=== PATIENT | female | born 2000 | race African-American/Black ===

== ENCOUNTER 2019-08-13 | Emergency (ER) | payer SELFPAY ==
[2019-08-13 14:14] LABS: HEMATOCRIT 30.3 % (37.0-47.0); HEMOGLOBIN 8.5 g/dl (12.0-16.0); IMMATURE GRANULOCYTES 0.3 % (0.0-5.0); MEAN CELL VOLUME 73.5 fL CALC (80.0-100.0); MEAN CORPUSCULAR HGB 20.6 pG CALC (26.0-32.0); MEAN CORPUSCULAR HGB CONC 28.1 g/L CALC (32.0-36.0); NEUT# 4.94 thou/uL (2.00-7.15); RED BLOOD COUNT 4.12 mill/uL (4.20-5.60)
[2019-08-13 14:26] LABS: ANION GAP 10 (6-22 (CALC)); BUN 9 mg/dL (8-21); BUN/CREATININE RATIO 10 (12-20 (CALC)); CARBON DIOXIDE 24 mmol/l (22-30); CHLORIDE 109 mmol/l (95-108); CREATININE 0.9 mg/dL (0.5-1.0); GFR > 60 ML/MIN (>=60 (CALC)); GFR FOR AFR.AMER. > 60 ML/MIN (>=60 (CALC)); POTASSIUM 3.2 mmol/l (3.5-5.1); SODIUM 140 mmol/l (137-146)
== END 2019-08-13 17:40 | disposition home or self-care (01) | DRG 313 ==
PROVIDERS: Family Medicine
DX: R07.9 Chest pain, unspecified (principal); I42.9 Cardiomyopathy, unspecified

== ENCOUNTER 2019-08-26 | Emergency (ER) | payer SELFPAY ==
[2019-08-26 22:08] LABS: HEMATOCRIT 31.2 % (37.0-47.0); HEMOGLOBIN 8.8 g/dl (12.0-16.0); IMMATURE GRANULOCYTES 0.1 % (0.0-5.0); MEAN CELL VOLUME 73.4 fL CALC (80.0-100.0); MEAN CORPUSCULAR HGB 20.7 pG CALC (26.0-32.0); MEAN CORPUSCULAR HGB CONC 28.2 g/L CALC (32.0-36.0); NEUT# 3.55 thou/uL (2.00-7.15); RED BLOOD COUNT 4.25 mill/uL (4.20-5.60); RED CELL DISTRI WIDTH 19.5 % (11.5-15.5)
[2019-08-26 22:09] LABS: URINE BILIRUBIN - DIPSTICK NEGATIVE (NEGATIVE); URINE BLOOD DIPSTICK NEGATIVE (NEGATIVE); URINE COLOR YELLOW; URINE GLUCOSE - DIPSTICK NEGATIVE (NEGATIVE); URINE KETONE NEGATIVE (NEGATIVE); URINE LEUK ESTERASE TRACE (NEGATIVE); URINE NITRITE - DIPSTICK NEGATIVE (Negative); URINE PH 5.5 (4.5-8.0); URINE PROTEIN - DIPSTICK NEGATIVE (NEG-TRACE); URINE SPECIFIC GRAVITY >=1.030; URINE UROBILINOGEN - DIPSTICK 0.2 E.U./dL (0.2)
[2019-08-26 22:20] LABS: BARBITURATES NEGATIVE (NEGATIVE); COCAINE NEGATIVE (NEGATIVE); METHADONE NEGATIVE (NEGATIVE); OXCYCODONE NEGATIVE (NEGATIVE); TETRAHYDROCANNABIONOL POSITIVE (NEGATIVE); TRICYLIC ANTIDEPRESSANTS NEGATIVE (NEGATIVE)
[2019-08-26 22:35] LABS: ALBUMIN 4.2 g/dL (3.2-5.0); ALKALINE PHOSPHATASE 97 u/l (38-126); AMYLASE 96 u/l (30-110); ANION GAP 10 (6-22 (CALC)); BILIRUBIN, TOTAL 0.3 mg/dL (0.0-1.4); BUN 9 mg/dL (8-21); BUN/CREATININE RATIO 13 (12-20 (CALC)); CARBON DIOXIDE 24 mmol/l (22-30); CHLORIDE 109 mmol/l (95-108); CREATININE 0.6 mg/dL (0.5-1.0); GFR > 60 ML/MIN (>=60 (CALC)); GFR FOR AFR.AMER. > 60 ML/MIN (>=60 (CALC)); LIPASE 203 u/l (23-300); POTASSIUM 3.4 mmol/l (3.5-5.1); SGOT/AST 36 u/l (14-36); SODIUM 140 mmol/l (137-146); TOTAL PROTEIN 7.5 g/dL (6.3-8.2)
[2019-08-26] MEDS ORDERED: PHENERGAN25 MG/TAB PO (23:27)
== END 2019-08-26 23:45 | disposition home or self-care (01) | DRG 103 ==
PROVIDERS: Family Medicine
DX: R51 Headache (principal); R10.84 Generalized abdominal pain; I42.9 Cardiomyopathy, unspecified; Z86.73 Personal history of transient ischemic attack (TIA), and cerebral infarction without residual deficits

== ENCOUNTER 2019-09-27 | Emergency (ER) | payer SELFPAY ==
[~2019-09-27] MED LIST: PHENERGAN25 MG/TAB PO
[2019-09-27 03:02] LABS: HEMATOCRIT 30.6 % (37.0-47.0); HEMOGLOBIN 8.9 g/dl (12.0-16.0); IMMATURE GRANULOCYTES 0.3 % (0.0-5.0); MEAN CELL VOLUME 71.2 fL CALC (80.0-100.0); MEAN CORPUSCULAR HGB 20.7 pG CALC (26.0-32.0); MEAN CORPUSCULAR HGB CONC 29.1 g/dL CAL (32.0-36.0); NEUT# 4.64 thou/uL (2.00-7.15); RED BLOOD COUNT 4.3 mill/uL (4.20-5.60)
[2019-09-27 03:08] LABS: URINE BILIRUBIN - DIPSTICK NEGATIVE (NEGATIVE); URINE BLOOD DIPSTICK NEGATIVE (NEGATIVE); URINE COLOR YELLOW; URINE GLUCOSE - DIPSTICK NEGATIVE (NEGATIVE); URINE KETONE TRACE mg/dL (NEGATIVE); URINE LEUK ESTERASE NEGATIVE (NEGATIVE); URINE NITRITE - DIPSTICK NEGATIVE (Negative); URINE PROTEIN - DIPSTICK NEGATIVE (NEG-TRACE); URINE SPECIFIC GRAVITY >=1.030; URINE UROBILINOGEN - DIPSTICK 0.2 E.U./dL (0.2)
[2019-09-27 03:09] LABS: ALBUMIN 3.8 g/dL (3.2-5.0); ALKALINE PHOSPHATASE 72 u/l (38-126); ANION GAP 11 (6-22 (CALC)); BILIRUBIN, TOTAL 0.3 mg/dL (0.0-1.4); BUN 6 mg/dL (8-21); BUN/CREATININE RATIO 9 (12-20 (CALC)); CARBON DIOXIDE 21 mmol/l (22-30); CHLORIDE 109 mmol/l (95-108); CREATININE 0.6 mg/dL (0.5-1.0); GFR > 60 ML/MIN (>=60 (CALC)); GFR FOR AFR.AMER. > 60 ML/MIN (>=60 (CALC)); LIPASE 165 u/l (23-300); POTASSIUM 3.6 mmol/l (3.5-5.1); SGOT/AST 29 u/l (14-36); SODIUM 137 mmol/l (137-146); TOTAL PROTEIN 6.8 g/dL (6.3-8.2)
[2019-09-27 03:51] LABS: BETA-HCG, QUANT(RESULT NUMBER) 56504 mIU/mL
== END 2019-09-27 07:00 | disposition home or self-care (01) | DRG 833 ==
DX: O26.891 Other specified pregnancy related conditions, first trimester (principal); R10.30 Lower abdominal pain, unspecified; O41.8X10 Other specified disorders of amniotic fluid and membranes, first trimester, not applicable or unspecified; Z3A.01 Less than 8 weeks gestation of pregnancy

== ENCOUNTER 2019-10-20 | Emergency (ER) | payer SELFPAY ==
[2019-10-20] MEDS ORDERED: MIRALAX3350 N1 PO (20:21)
[2019-10-20] MEDS ORDERED: PRENATAL MULTI1 CAP PO (20:21)
== END 2019-10-20 20:45 | disposition home or self-care (01) | DRG 832 ==
DX: O99.611 Diseases of the digestive system complicating pregnancy, first trimester (principal); K59.00 Constipation, unspecified; O99.411 Diseases of the circulatory system complicating pregnancy, first trimester; I42.9 Cardiomyopathy, unspecified; Z3A.00 Weeks of gestation of pregnancy not specified; Z86.73 Personal history of transient ischemic attack (TIA), and cerebral infarction without residual deficits

== ENCOUNTER 2019-11-08 | Emergency (ER) | payer SELFPAY ==
[~2019-11-08] MED LIST changes: +MIRALAX3350 N1 PO; +PRENATAL MULTI1 CAP PO
[2019-11-08] MEDS ORDERED: PRENATA9 PO (14:59)
[2019-11-08 15:18] LABS: HEMATOCRIT 30.5 % (37.0-47.0); IMMATURE GRANULOCYTES 0.3 % (0.0-5.0); MEAN CELL VOLUME 70.6 fL CALC (80.0-100.0); MEAN CORPUSCULAR HGB 20.8 pG CALC (26.0-32.0); MEAN CORPUSCULAR HGB CONC 29.5 g/dL CAL (32.0-36.0); NEUT# 6.05 thou/uL (2.00-7.15); RED BLOOD COUNT 4.32 mill/uL (4.20-5.60)
[2019-11-08 15:20] LABS: URINE BILIRUBIN - DIPSTICK NEGATIVE (NEGATIVE); URINE BLOOD DIPSTICK NEGATIVE (NEGATIVE); URINE COLOR YELLOW; URINE GLUCOSE - DIPSTICK NEGATIVE (NEGATIVE); URINE KETONE NEGATIVE (NEGATIVE); URINE LEUK ESTERASE NEGATIVE (NEGATIVE); URINE NITRITE - DIPSTICK NEGATIVE (Negative); URINE PROTEIN - DIPSTICK NEGATIVE (NEG-TRACE); URINE UROBILINOGEN - DIPSTICK 0.2 E.U./dL (0.2)
[2019-11-08 15:42] LABS: ALKALINE PHOSPHATASE 81 u/l (38-126); ANION GAP 10 (6-22 (CALC)); BILIRUBIN, TOTAL 0.3 mg/dL (0.0-1.4); BUN 4 mg/dL (8-21); BUN/CREATININE RATIO 8 (12-20 (CALC)); CARBON DIOXIDE 23 mmol/l (22-30); CHLORIDE 106 mmol/l (95-108); CREATININE 0.5 mg/dL (0.5-1.0); GFR > 60 ML/MIN (>=60 (CALC)); GFR FOR AFR.AMER. > 60 ML/MIN (>=60 (CALC)); LIPASE 142 u/l (23-300); POTASSIUM 3.9 mmol/l (3.5-5.1); SGOT/AST 28 u/l (14-36); SODIUM 135 mmol/l (137-146); TOTAL PROTEIN 7.2 g/dL (6.3-8.2)
[2019-11-08 16:33] LABS: BETA-HCG, QUANT(RESULT NUMBER) 163550 mIU/mL
[2019-11-08] MEDS ORDERED: PREDNISONE50 MG PO ×2 (18:53)
== END 2019-11-08 18:55 | disposition home or self-care (01) | DRG 832 ==
PROVIDERS: Family Medicine
DX: O99.511 Diseases of the respiratory system complicating pregnancy, first trimester (principal); J45.901 Unspecified asthma with (acute) exacerbation; O99.411 Diseases of the circulatory system complicating pregnancy, first trimester; I42.9 Cardiomyopathy, unspecified; O26.891 Other specified pregnancy related conditions, first trimester; R10.31 Right lower quadrant pain; R10.32 Left lower quadrant pain; Z3A.08 8 weeks gestation of pregnancy; Z86.73 Personal history of transient ischemic attack (TIA), and cerebral infarction without residual deficits; Z20.828 Contact with and (suspected) exposure to other viral communicable diseases

== ENCOUNTER 2019-12-18 18:07 | Emergency (ER) | payer OTHER ==
[~2019-12-18] VITALS: Ht 167.6 cm; Wt 72.7 kg
[~2019-12-18 18:07] MED LIST changes: +PREDNISONE50 MG PO; +PRENATA9 PO
[2019-12-18 18:37] LABS: HEMATOCRIT 29.7 % (37.0-47.0); HEMOGLOBIN 8.9 g/dl (12.0-16.0); IMMATURE GRANULOCYTES 0.7 % (0.0-5.0); MEAN CELL VOLUME 70.4 fL CALC (80.0-100.0); MEAN CORPUSCULAR HGB 21.1 pG CALC (26.0-32.0); NEUT# 10.21 thou/uL (2.00-7.15); RED BLOOD COUNT 4.22 mill/uL (4.20-5.60); RED CELL DISTRI WIDTH 19.4 % (11.5-15.5)
[2019-12-18 18:51] LABS: ALBUMIN 3.3 g/dL (3.2-5.0); ALKALINE PHOSPHATASE 85 u/l (38-126); ANION GAP 10 (6-22 (CALC)); BILIRUBIN, TOTAL 0.4 mg/dL (0.0-1.4); BUN 6 mg/dL (8-21); BUN/CREATININE RATIO 11 (12-20 (CALC)); CARBON DIOXIDE 20 mmol/l (22-30); CHLORIDE 106 mmol/l (95-108); CREATININE 0.6 mg/dL (0.5-1.0); GFR > 60 ML/MIN (>=60 (CALC)); GFR FOR AFR.AMER. > 60 ML/MIN (>=60 (CALC)); LIPASE 106 u/l (23-300); POTASSIUM 3.6 mmol/l (3.5-5.1); SGOT/AST 29 u/l (14-36); SODIUM 132 mmol/l (137-146); TOTAL PROTEIN 6.5 g/dL (6.3-8.2)
[2019-12-18 19:00] LABS: URINE BLOOD DIPSTICK NEGATIVE (NEGATIVE); URINE COLOR YELLOW; URINE GLUCOSE - DIPSTICK NEGATIVE (NEGATIVE); URINE KETONE TRACE mg/dL (NEGATIVE); URINE LEUK ESTERASE NEGATIVE (NEGATIVE); URINE NITRITE - DIPSTICK NEGATIVE (Negative); URINE PH 6.5 (4.5-8.0); URINE PROTEIN - DIPSTICK TRACE mg/dL (NEG-TRACE); URINE SPECIFIC GRAVITY 1.025; URINE UROBILINOGEN - DIPSTICK 0.2 E.U./dL (0.2)
[2019-12-18 19:01] LABS: URINE BILIRUBIN - DIPSTICK NEGATIVE (NEGATIVE)
[2019-12-18 19:34] LABS: BETA-HCG, QUANT(RESULT NUMBER) 48802 mIU/mL
[2019-12-18] MEDS ORDERED: IRON325 M1 PO ×2 (20:56)
[2019-12-18 21:27] VITALS: BP 126/58
== END 2019-12-18 21:27 | disposition home or self-care (01) ==
LOC: ED 18:07
PROVIDERS: Family Medicine
DX: O26.892 Other specified pregnancy related conditions, second trimester (principal); R10.30 Lower abdominal pain, unspecified; O99.012 Anemia complicating pregnancy, second trimester; D64.9 Anemia, unspecified; Z3A.00 Weeks of gestation of pregnancy not specified; Z86.73 Personal history of transient ischemic attack (TIA), and cerebral infarction without residual deficits

== ENCOUNTER 2020-01-03 09:03 | Emergency (ER) | payer OTHER ==
[~2020-01-03] VITALS: Ht 167.6 cm; Wt 71.3 kg
[~2020-01-03 09:03] MED LIST changes: +IRON325 M1 PO
[2020-01-03] MEDS ORDERED: PREDNISONE50 MG PO ×2 (11:05)
[2020-01-03] MEDS ORDERED: PROAIR HFA108 MCG/AC PO ×2 (11:05)
[2020-01-03 11:20] VITALS: BP 112/60
== END 2020-01-03 11:20 | disposition home or self-care (01) ==
LOC: ED 09:03
DX: O99.512 Diseases of the respiratory system complicating pregnancy, second trimester (principal); J06.9 Acute upper respiratory infection, unspecified; J45.909 Unspecified asthma, uncomplicated; O99.412 Diseases of the circulatory system complicating pregnancy, second trimester; I42.9 Cardiomyopathy, unspecified; Z3A.24 24 weeks gestation of pregnancy; Z86.73 Personal history of transient ischemic attack (TIA), and cerebral infarction without residual deficits; Z20.828 Contact with and (suspected) exposure to other viral communicable diseases

== ENCOUNTER 2020-02-03 14:25 | Emergency (ER) | payer OTHER ==
[~2020-02-03] VITALS: Ht 167.6 cm; Wt 76.0 kg
[~2020-02-03 14:25] MED LIST changes: +PROAIR HFA108 MCG/AC PO
[2020-02-03 15:02] LABS: HEMATOCRIT 30.2 % (37.0-47.0); HEMOGLOBIN 8.7 g/dl (12.0-16.0); IMMATURE GRANULOCYTES 0.4 % (0.0-5.0); MEAN CELL VOLUME 74.2 fL CALC (80.0-100.0); MEAN CORPUSCULAR HGB 21.4 pG CALC (26.0-32.0); MEAN CORPUSCULAR HGB CONC 28.8 g/dL CAL (32.0-36.0); RED BLOOD COUNT 4.07 mill/uL (4.20-5.60)
[2020-02-03 15:10] LABS: URINE BILIRUBIN - DIPSTICK NEGATIVE (NEGATIVE); URINE BLOOD DIPSTICK NEGATIVE (NEGATIVE); URINE COLOR YELLOW; URINE GLUCOSE - DIPSTICK NEGATIVE (NEGATIVE); URINE KETONE TRACE mg/dL (NEGATIVE); URINE NITRITE - DIPSTICK NEGATIVE (Negative); URINE PH 6.5 (4.5-8.0); URINE PROTEIN - DIPSTICK 30 mg/dL (NEG-TRACE); URINE SPECIFIC GRAVITY >=1.030
[2020-02-03 15:12] LABS: URINE EPITHELIAL CELLS MANY EPI/hpf (0-FEW); URINE LEUK ESTERASE TRACE (NEGATIVE); URINE MUCUS FEW hpf (NONE-FEW)
[2020-02-03 15:18] LABS: ALBUMIN 3.1 g/dL (3.2-5.0); ALKALINE PHOSPHATASE 111 u/l (38-126); ANION GAP 8 (6-22 (CALC)); BUN 4 mg/dL (7-17); BUN/CREATININE RATIO 9 (12-20 (CALC)); CARBON DIOXIDE 21 mmol/l (22-30); CHLORIDE 110 mmol/l (95-108); CREATININE 0.5 mg/dL (0.5-1.0); GFR > 60 ML/MIN (>=60 (CALC)); GFR FOR AFR.AMER. > 60 ML/MIN (>=60 (CALC)); LIPASE 162 u/l (23-300); POTASSIUM 3.1 mmol/l (3.5-5.1); SGOT/AST 26 u/l (14-36); SODIUM 136 mmol/l (137-146); TOTAL PROTEIN 6.3 g/dL (6.3-8.2)
[2020-02-03 15:21] LABS: BILIRUBIN, TOTAL 0.2 mg/dL (0.0-1.4)
[2020-02-03 17:38] VITALS: BP 118/65
== END 2020-02-03 17:00 | disposition home or self-care (01) ==
LOC: ED 14:25
DX: O26.892 Other specified pregnancy related conditions, second trimester (principal); R10.11 Right upper quadrant pain; O99.282 Endocrine, nutritional and metabolic diseases complicating pregnancy, second trimester; E87.6 Hypokalemia; O99.012 Anemia complicating pregnancy, second trimester; D64.9 Anemia, unspecified; O99.412 Diseases of the circulatory system complicating pregnancy, second trimester; I42.9 Cardiomyopathy, unspecified; O99.512 Diseases of the respiratory system complicating pregnancy, second trimester; J45.909 Unspecified asthma, uncomplicated; Z3A.24 24 weeks gestation of pregnancy; Z86.73 Personal history of transient ischemic attack (TIA), and cerebral infarction without residual deficits

== ENCOUNTER 2020-03-17 12:54 | Emergency (ER) | payer OTHER ==
[~2020-03-17] VITALS: Ht 167.6 cm; Wt 70.0 kg
[2020-03-17 13:35] LABS: URINE BILIRUBIN - DIPSTICK NEGATIVE (NEGATIVE); URINE BLOOD DIPSTICK NEGATIVE (NEGATIVE); URINE COLOR YELLOW; URINE GLUCOSE - DIPSTICK NEGATIVE (NEGATIVE); URINE KETONE NEGATIVE (NEGATIVE); URINE LEUK ESTERASE TRACE (NEGATIVE); URINE NITRITE - DIPSTICK NEGATIVE (Negative); URINE PROTEIN - DIPSTICK NEGATIVE (NEG-TRACE); URINE UROBILINOGEN - DIPSTICK 0.2 E.U./dL (0.2)
[2020-03-17 13:46] LABS: HEMATOCRIT 31.8 % (37.0-47.0); HEMOGLOBIN 9.2 g/dl (12.0-16.0); IMMATURE GRANULOCYTES 0.7 % (0.0-5.0); MEAN CELL VOLUME 71.6 fL CALC (80.0-100.0); MEAN CORPUSCULAR HGB 20.7 pG CALC (26.0-32.0); MEAN CORPUSCULAR HGB CONC 28.9 g/dL CAL (32.0-36.0); NEUT# 7.93 thou/uL (2.00-7.15); RED BLOOD COUNT 4.44 mill/uL (4.20-5.60); RED CELL DISTRI WIDTH 18.3 % (11.5-15.5)
[2020-03-17 14:03] LABS: ALBUMIN 3.3 g/dL (3.2-5.0); BUN 5 mg/dL (7-17); BUN/CREATININE RATIO 9 (12-20 (CALC)); CARBON DIOXIDE 22 mmol/l (22-30); CHLORIDE 105 mmol/l (95-108); CREATININE 0.5 mg/dL (0.5-1.0); GFR > 60 ML/MIN (>=60 (CALC)); GFR FOR AFR.AMER. > 60 ML/MIN (>=60 (CALC)); SGOT/AST 29 u/l (14-36); SODIUM 133 mmol/l (137-146); TOTAL PROTEIN 6.8 g/dL (6.3-8.2)
[2020-03-17 14:10] LABS: ALKALINE PHOSPHATASE 168 u/l (38-126); ANION GAP 10 (6-22 (CALC)); BILIRUBIN, TOTAL 0.4 mg/dL (0.0-1.4); POTASSIUM 3.8 mmol/l (3.5-5.1)
[2020-03-17] MEDS ORDERED: MONISTAT1 VA (14:13)
[2020-03-17 14:15] VITALS: BP 103/58
== END 2020-03-17 14:15 | disposition home or self-care (01) ==
LOC: ED 12:54
PROVIDERS: Emergency Medicine
DX: O23.592 Infection of other part of genital tract in pregnancy, second trimester (principal); O26.892 Other specified pregnancy related conditions, second trimester; M79.89 Other specified soft tissue disorders; R25.2 Cramp and spasm; O99.412 Diseases of the circulatory system complicating pregnancy, second trimester; I42.9 Cardiomyopathy, unspecified; O99.512 Diseases of the respiratory system complicating pregnancy, second trimester; J45.909 Unspecified asthma, uncomplicated; Z3A.28 28 weeks gestation of pregnancy; Z86.73 Personal history of transient ischemic attack (TIA), and cerebral infarction without residual deficits

== ENCOUNTER 2020-12-12 16:39 | Emergency (ER) | payer OTHER ==
[~2020-12-12] VITALS: Ht 167.6 cm; Wt 63.4 kg
[~2020-12-12 16:39] MED LIST changes: +MONISTAT1 VA
[2020-12-12 17:18] LABS: HEMATOCRIT 31.9 % (37.0-47.0); HEMOGLOBIN 8.9 g/dl (12.0-16.0); IMMATURE GRANULOCYTES 0.4 % (0.0-5.0); MEAN CELL VOLUME 71.4 fL CALC (80.0-100.0); MEAN CORPUSCULAR HGB 19.9 pG CALC (26.0-32.0); MEAN CORPUSCULAR HGB CONC 27.9 g/dL CAL (32.0-36.0); NEUT# 2.04 thou/uL (2.00-7.15); RED BLOOD COUNT 4.47 mill/uL (4.20-5.60); RED CELL DISTRI WIDTH 17.9 % (11.5-15.5)
[2020-12-12 17:18] LABS: URINE BLOOD DIPSTICK NEGATIVE (NEGATIVE); URINE COLOR YELLOW; URINE GLUCOSE - DIPSTICK NEGATIVE (NEGATIVE); URINE KETONE TRACE mg/dL (NEGATIVE); URINE LEUK ESTERASE NEGATIVE (NEGATIVE); URINE PROTEIN - DIPSTICK TRACE mg/dL (NEG-TRACE); URINE SPECIFIC GRAVITY >=1.030; URINE UROBILINOGEN - DIPSTICK 0.2 E.U./dL (0.2)
[2020-12-12 17:20] LABS: URINE BILIRUBIN - DIPSTICK SMALL (NEGATIVE); URINE NITRITE - DIPSTICK NEGATIVE (Negative)
[2020-12-12 17:30] LABS: ALBUMIN 3.8 g/dL (3.2-5.0); ALKALINE PHOSPHATASE 93 u/l (38-126); ANION GAP 10 (6-22 (CALC)); BILIRUBIN, TOTAL 0.3 mg/dL (0.0-1.4); BUN 8 mg/dL (7-17); BUN/CREATININE RATIO 11 (12-20 (CALC)); CARBON DIOXIDE 23 mmol/l (22-30); CHLORIDE 109 mmol/l (95-108); CREATININE 0.7 mg/dL (0.5-1.0); GFR > 60 ML/MIN (>=60 (CALC)); GFR FOR AFR.AMER. > 60 ML/MIN (>=60 (CALC)); LIPASE 575 u/l (23-300); POTASSIUM 3.7 mmol/l (3.5-5.1); SGOT/AST 39 u/l (14-36); SODIUM 138 mmol/l (137-146); TOTAL PROTEIN 7.6 g/dL (6.3-8.2)
[2020-12-12] MEDS ORDERED: IRON FORMULA PO (19:14)
[2020-12-12 19:25] VITALS: BP 141/62
== END 2020-12-12 19:26 | disposition home or self-care (01) ==
LOC: ED 16:39
DX: K59.00 Constipation, unspecified (principal); D64.9 Anemia, unspecified; J45.909 Unspecified asthma, uncomplicated; I42.9 Cardiomyopathy, unspecified; Z86.73 Personal history of transient ischemic attack (TIA), and cerebral infarction without residual deficits
CPT/HCPCS: Q9967

== ENCOUNTER 2020-12-30 07:07 | Emergency (ER) | payer OTHER ==
[~2020-12-30] VITALS: Ht 167.6 cm; Wt 63.0 kg
[~2020-12-30 07:07] MED LIST changes: +IRON FORMULA PO
[2020-12-30 07:53] LABS: URINE BILIRUBIN - DIPSTICK NEGATIVE (NEGATIVE); URINE BLOOD DIPSTICK NEGATIVE (NEGATIVE); URINE COLOR YELLOW; URINE GLUCOSE - DIPSTICK NEGATIVE (NEGATIVE); URINE KETONE TRACE mg/dL (NEGATIVE); URINE LEUK ESTERASE NEGATIVE (NEGATIVE); URINE PH 5.5 (4.5-8.0); URINE PROTEIN - DIPSTICK NEGATIVE (NEG-TRACE); URINE SPECIFIC GRAVITY >=1.030; URINE UROBILINOGEN - DIPSTICK 0.2 E.U./dL (0.2)
[2020-12-30 08:00] LABS: URINE NITRITE - DIPSTICK NEGATIVE (Negative)
[2020-12-30 08:21] LABS: HEMATOCRIT 34.5 % (37.0-47.0); HEMOGLOBIN 9.6 g/dl (12.0-16.0); IMMATURE GRANULOCYTES 0.2 % (0.0-5.0); MEAN CELL VOLUME 71.3 fL CALC (80.0-100.0); MEAN CORPUSCULAR HGB 19.8 pG CALC (26.0-32.0); MEAN CORPUSCULAR HGB CONC 27.8 g/dL CAL (32.0-36.0); NEUT# 2.35 thou/uL (2.00-7.15); RED BLOOD COUNT 4.84 mill/uL (4.20-5.60); RED CELL DISTRI WIDTH 17.3 % (11.5-15.5)
[2020-12-30 08:23] LABS: ALBUMIN 3.8 g/dL (3.2-5.0); ALKALINE PHOSPHATASE 89 u/l (38-126); ANION GAP 12 (6-22 (CALC)); BILIRUBIN, TOTAL 0.3 mg/dL (0.0-1.4); BUN 9 mg/dL (7-17); BUN/CREATININE RATIO 14 (12-20 (CALC)); CARBON DIOXIDE 22 mmol/l (22-30); CHLORIDE 108 mmol/l (95-108); CREATININE 0.7 mg/dL (0.5-1.0); GFR > 60 ML/MIN (>=60 (CALC)); GFR FOR AFR.AMER. > 60 ML/MIN (>=60 (CALC)); LIPASE 300 u/l (23-300); POTASSIUM 4.2 mmol/l (3.5-5.1); SGOT/AST 39 u/l (14-36); SODIUM 138 mmol/l (137-146); TOTAL PROTEIN 7.8 g/dL (6.3-8.2)
[2020-12-30 09:07] VITALS: BP 100/59
== END 2020-12-30 09:15 | disposition home or self-care (01) ==
LOC: ED 07:07
PROVIDERS: Family Medicine
DX: L90.5 Scar conditions and fibrosis of skin (principal); G62.9 Polyneuropathy, unspecified; N91.2 Amenorrhea, unspecified; I42.9 Cardiomyopathy, unspecified; J45.909 Unspecified asthma, uncomplicated; Z86.73 Personal history of transient ischemic attack (TIA), and cerebral infarction without residual deficits

== ENCOUNTER 2021-02-23 11:36 | Emergency (ER) | payer OTHER ==
[~2021-02-23] VITALS: Ht 167.6 cm; Wt 67.0 kg
[2021-02-23 16:37] VITALS: BP 130/78
== END 2021-02-23 16:40 | disposition home or self-care (01) ==
LOC: ED 11:36
DX: S93.401A Sprain of unspecified ligament of right ankle, initial encounter (principal); J45.909 Unspecified asthma, uncomplicated; I42.9 Cardiomyopathy, unspecified; X50.0XXA Overexertion from strenuous movement or load, initial encounter; Y92.410 Unspecified street and highway as the place of occurrence of the external cause; Z86.73 Personal history of transient ischemic attack (TIA), and cerebral infarction without residual deficits

== ENCOUNTER 2021-03-03 07:46 | Emergency (ER) | payer OTHER ==
[~2021-03-03] VITALS: Ht 167.6 cm; Wt 65.0 kg
[2021-03-03] MEDS ORDERED: POLYSPORIN3.5 GM TOP (10:38)
[2021-03-03 11:00] VITALS: BP 96/72
[2021-03-04] MEDS ORDERED: EMLA CREAM5 GM/TUBE EX (08:13)
[2021-03-04] MEDS ORDERED: [UNRECOGNIZED DRUG - REMARK] XX (08:15)
== END 2021-03-03 11:00 | disposition home or self-care (01) ==
LOC: ED 07:46
DX: N91.2 Amenorrhea, unspecified (principal); T21.22XA Burn of second degree of abdominal wall, initial encounter; I42.9 Cardiomyopathy, unspecified; J45.909 Unspecified asthma, uncomplicated; X12.XXXA Contact with other hot fluids, initial encounter; Y93.G3 Activity, cooking and baking; Y92.9 Unspecified place or not applicable; Z86.73 Personal history of transient ischemic attack (TIA), and cerebral infarction without residual deficits

== ENCOUNTER 2021-03-04 07:53 | Emergency (ER) | payer OTHER ==
[~2021-03-04] VITALS: Ht 167.6 cm; Wt 68.6 kg
[~2021-03-04 07:53] MED LIST changes: +POLYSPORIN3.5 GM TOP
[2021-03-04] MEDS ORDERED: EMLA CREAM5 GM/TUBE EX (08:13)
[2021-03-04] MEDS ORDERED: [UNRECOGNIZED DRUG - REMARK] XX (08:15)
[2021-03-04 09:15] VITALS: BP 104/63
== END 2021-03-04 09:15 | disposition home or self-care (01) ==
LOC: ED 07:53
DX: T21.02XD Burn of unspecified degree of abdominal wall, subsequent encounter (principal); I42.9 Cardiomyopathy, unspecified; J45.909 Unspecified asthma, uncomplicated; F17.200 Nicotine dependence, unspecified, uncomplicated; X12.XXXD Contact with other hot fluids, subsequent encounter; Z86.73 Personal history of transient ischemic attack (TIA), and cerebral infarction without residual deficits

== ENCOUNTER 2021-03-12 01:25 | Emergency (ER) | payer OTHER ==
[~2021-03-12] VITALS: Ht 157.5 cm; Wt 62.0 kg
[~2021-03-12 01:25] MED LIST changes: +EMLA CREAM5 GM/TUBE EX; +[UNRECOGNIZED DRUG - REMARK] XX
[2021-03-12 02:12] LABS: URINE BILIRUBIN - DIPSTICK NEGATIVE (NEGATIVE); URINE BLOOD DIPSTICK NEGATIVE (NEGATIVE); URINE COLOR YELLOW; URINE GLUCOSE - DIPSTICK NEGATIVE (NEGATIVE); URINE KETONE TRACE mg/dL (NEGATIVE); URINE LEUK ESTERASE NEGATIVE (NEGATIVE); URINE PROTEIN - DIPSTICK TRACE mg/dL (NEG-TRACE); URINE SPECIFIC GRAVITY >=1.030; URINE UROBILINOGEN - DIPSTICK 0.2 E.U./dL (0.2)
[2021-03-12 02:13] LABS: URINE NITRITE - DIPSTICK NEGATIVE (Negative)
[2021-03-12] MEDS ORDERED: TORADOL PO (02:58)
[2021-03-12 05:29] VITALS: BP 111/60
== END 2021-03-12 05:26 | disposition home or self-care (01) ==
LOC: ED 01:25
DX: M54.6 Pain in thoracic spine (principal); J45.909 Unspecified asthma, uncomplicated; I42.9 Cardiomyopathy, unspecified; Z86.73 Personal history of transient ischemic attack (TIA), and cerebral infarction without residual deficits

== ENCOUNTER 2021-03-22 21:35 | Emergency (ER) | payer OTHER ==
[~2021-03-22] VITALS: Ht 157.5 cm; Wt 61.8 kg
[~2021-03-22 21:35] MED LIST changes: +TORADOL PO
[2021-03-22 22:12] LABS: HEMATOCRIT 34.4 % (37.0-47.0); HEMOGLOBIN 9.9 g/dl (12.0-16.0); MEAN CELL VOLUME 74.8 fL CALC (80.0-100.0); MEAN CORPUSCULAR HGB 21.5 pG CALC (26.0-32.0); MEAN CORPUSCULAR HGB CONC 28.8 g/dL CAL (32.0-36.0); NEUT# 2.27 thou/uL (2.00-7.15); RED BLOOD COUNT 4.6 mill/uL (4.20-5.60); RED CELL DISTRI WIDTH 19.8 % (11.5-15.5)
[2021-03-22 22:12] LABS: URINE BILIRUBIN - DIPSTICK NEGATIVE (NEGATIVE); URINE BLOOD DIPSTICK NEGATIVE (NEGATIVE); URINE COLOR YELLOW; URINE GLUCOSE - DIPSTICK NEGATIVE (NEGATIVE); URINE KETONE TRACE mg/dL (NEGATIVE); URINE LEUK ESTERASE NEGATIVE (NEGATIVE); URINE NITRITE - DIPSTICK NEGATIVE (Negative); URINE PROTEIN - DIPSTICK NEGATIVE (NEG-TRACE); URINE SPECIFIC GRAVITY >=1.030; URINE UROBILINOGEN - DIPSTICK 0.2 E.U./dL (0.2)
[2021-03-22 22:29] LABS: ALBUMIN 3.7 g/dL (3.2-5.0); ALKALINE PHOSPHATASE 114 u/l (38-126); AMYLASE 126 u/l (30-110); ANION GAP 7 (6-22 (CALC)); BILIRUBIN, TOTAL 0.3 mg/dL (0.0-1.4); BUN 10 mg/dL (7-17); BUN/CREATININE RATIO 12 (12-20 (CALC)); CARBON DIOXIDE 24 mmol/l (22-30); CHLORIDE 110 mmol/l (95-108); CREATININE 0.9 mg/dL (0.5-1.0); GFR > 60 ML/MIN (>=60 (CALC)); GFR FOR AFR.AMER. > 60 ML/MIN (>=60 (CALC)); LIPASE 465 u/l (23-300); POTASSIUM 4.1 mmol/l (3.5-5.1); SGOT/AST 31 u/l (14-36); SODIUM 137 mmol/l (137-146); TOTAL PROTEIN 7.3 g/dL (6.3-8.2)
[2021-03-23 00:56] VITALS: BP 103/69
== END 2021-03-23 00:56 | disposition home or self-care (01) ==
LOC: ED 21:35
PROVIDERS: Family Medicine
DX: K59.00 Constipation, unspecified (principal); R74.8 Abnormal levels of other serum enzymes; I42.9 Cardiomyopathy, unspecified; J45.909 Unspecified asthma, uncomplicated; Z86.73 Personal history of transient ischemic attack (TIA), and cerebral infarction without residual deficits; Z20.822 Contact with and (suspected) exposure to COVID-19
CPT/HCPCS: Q9967

== ENCOUNTER 2021-05-07 13:09 | Emergency (ER) | payer OTHER ==
[~2021-05-07] VITALS: Ht 157.5 cm; Wt 65.0 kg
[2021-05-07] MEDS ORDERED: PREDNISONE20 MG PO (16:17)
[2021-05-07] MEDS ORDERED: ZPAK PO (16:17)
[2021-05-07] MEDS ORDERED: PROAIR HFA108 MCG/AC INHW/SPAC (16:17)
[2021-05-07 16:32] VITALS: BP 101/70
== END 2021-05-07 16:33 | disposition home or self-care (01) ==
LOC: ED 13:09
DX: J06.9 Acute upper respiratory infection, unspecified (principal); J45.901 Unspecified asthma with (acute) exacerbation; I42.9 Cardiomyopathy, unspecified; F17.200 Nicotine dependence, unspecified, uncomplicated; Z86.73 Personal history of transient ischemic attack (TIA), and cerebral infarction without residual deficits; Z20.822 Contact with and (suspected) exposure to COVID-19

== ENCOUNTER 2021-06-01 18:47 | Emergency (ER) | payer OTHER ==
[~2021-06-01] VITALS: Ht 170.2 cm; Wt 67.0 kg
[~2021-06-01 18:47] MED LIST changes: +PREDNISONE20 MG PO; +PROAIR HFA108 MCG/AC INHW/SPAC; +ZPAK PO
[2021-06-01] MEDS ORDERED: VOLTAREN75 MG PO (20:39)
[2021-06-01 20:50] VITALS: BP 107/50
== END 2021-06-01 20:50 | disposition home or self-care (01) ==
LOC: ED 18:47
DX: M77.52 Other enthesopathy of left foot and ankle (principal); I42.9 Cardiomyopathy, unspecified; J45.909 Unspecified asthma, uncomplicated; F17.200 Nicotine dependence, unspecified, uncomplicated; Z86.73 Personal history of transient ischemic attack (TIA), and cerebral infarction without residual deficits

== ENCOUNTER 2021-08-29 13:04 | Emergency (ER) | payer OTHER ==
[~2021-08-29] VITALS: Ht 165.1 cm; Wt 61.0 kg
[2021-08-29] VITALS (10 sets, daily range): BP systolic 96–140; BP diastolic 53–97
[~2021-08-29 13:04] MED LIST changes: +VOLTAREN75 MG PO
[2021-08-29] MEDS ORDERED: KEFLEX500 MG PO (15:25)
== END 2021-08-29 15:40 | disposition home or self-care (01) ==
LOC: ED 13:04
DX: O9A.211 Injury, poisoning and certain other consequences of external causes complicating pregnancy, first trimester (principal); S71.151A Open bite, right thigh, initial encounter; S71.152A Open bite, left thigh, initial encounter; S81.851A Open bite, right lower leg, initial encounter; O99.511 Diseases of the respiratory system complicating pregnancy, first trimester; J45.909 Unspecified asthma, uncomplicated; O99.411 Diseases of the circulatory system complicating pregnancy, first trimester; I42.9 Cardiomyopathy, unspecified; O99.331 Smoking (tobacco) complicating pregnancy, first trimester; F17.200 Nicotine dependence, unspecified, uncomplicated; W54.0XXA Bitten by dog, initial encounter; Y92.89 Other specified places as the place of occurrence of the external cause; Z3A.08 8 weeks gestation of pregnancy

== ENCOUNTER 2021-10-22 18:31 | Emergency (ER) | payer OTHER ==
[~2021-10-22] VITALS: Ht 165.1 cm; Wt 87.0 kg
[~2021-10-22 18:31] MED LIST changes: +KEFLEX500 MG PO
[2021-10-22 19:53] LABS: HEMATOCRIT 33.2 % (37.0-47.0); HEMOGLOBIN 9.9 g/dl (12.0-16.0); IMMATURE GRANULOCYTES 0.1 % (0.0-5.0); MEAN CELL VOLUME 76.7 fL CALC (80.0-100.0); MEAN CORPUSCULAR HGB 22.9 pG CALC (26.0-32.0); MEAN CORPUSCULAR HGB CONC 29.8 g/dL CAL (32.0-36.0); NEUT# 5.12 thou/uL (2.00-7.15); RED BLOOD COUNT 4.33 mill/uL (4.20-5.60); RED CELL DISTRI WIDTH 19.7 % (11.5-15.5)
[2021-10-22 19:56] LABS: URINE BILIRUBIN - DIPSTICK NEGATIVE (NEGATIVE); URINE BLOOD DIPSTICK NEGATIVE (NEGATIVE); URINE COLOR YELLOW; URINE GLUCOSE - DIPSTICK NEGATIVE (NEGATIVE); URINE KETONE TRACE mg/dL (NEGATIVE); URINE LEUK ESTERASE NEGATIVE (NEGATIVE); URINE PH 6.5 (4.5-8.0); URINE PROTEIN - DIPSTICK TRACE mg/dL (NEG-TRACE); URINE SPECIFIC GRAVITY >=1.030; URINE UROBILINOGEN - DIPSTICK 0.2 E.U./dL (0.2)
[2021-10-22 19:57] LABS: URINE NITRITE - DIPSTICK NEGATIVE (Negative)
[2021-10-22 20:30] LABS: ALBUMIN 3.6 g/dL (3.2-5.0); ALKALINE PHOSPHATASE 96 u/l (38-126); AMYLASE 112 u/l (30-110); ANION GAP 11 (6-22 (CALC)); BILIRUBIN, TOTAL 0.2 mg/dL (0.0-1.4); BUN 8 mg/dL (7-17); BUN/CREATININE RATIO 13 (12-20 (CALC)); CARBON DIOXIDE 25 mmol/l (22-30); CHLORIDE 106 mmol/l (95-108); CREATININE 0.6 mg/dL (0.5-1.0); GFR > 60 ML/MIN (>=60 (CALC)); GFR FOR AFR.AMER. > 60 ML/MIN (>=60 (CALC)); LIPASE 256 u/l (23-300); POTASSIUM 3.7 mmol/l (3.5-5.1); SGOT/AST 36 u/l (14-36); SODIUM 138 mmol/l (137-146); TOTAL PROTEIN 7.3 g/dL (6.3-8.2)
[2021-10-22 20:51] VITALS: BP 102/57
== END 2021-10-22 20:58 | disposition home or self-care (01) ==
LOC: ED 18:31
PROVIDERS: Emergency Medicine
DX: O26.892 Other specified pregnancy related conditions, second trimester (principal); R10.30 Lower abdominal pain, unspecified; O99.512 Diseases of the respiratory system complicating pregnancy, second trimester; J45.909 Unspecified asthma, uncomplicated; O99.412 Diseases of the circulatory system complicating pregnancy, second trimester; I42.9 Cardiomyopathy, unspecified; O99.332 Smoking (tobacco) complicating pregnancy, second trimester; F17.200 Nicotine dependence, unspecified, uncomplicated; Z86.73 Personal history of transient ischemic attack (TIA), and cerebral infarction without residual deficits; Z3A.19 19 weeks gestation of pregnancy

== ENCOUNTER 2022-07-15 13:00 | Emergency (ER) | payer OTHER ==
[~2022-07-15] VITALS: Ht 165.1 cm; Wt 58.0 kg
[2022-07-15] VITALS (16 sets, daily range): BP systolic 84–112; BP diastolic 35–65
[2022-07-15 19:56] LABS: BASO% 0.7 % (0-3); EOS% 0.2 % (0-8); HEMATOCRIT 34.7 % (37.0-47.0); HEMOGLOBIN 10.3 g/dl (12.0-16.0); IMMATURE GRANULOCYTES 0.2 % (0.0-5.0); MEAN CORPUSCULAR HGB 20.6 pG CALC (26.0-32.0); MEAN CORPUSCULAR HGB CONC 29.7 g/dL CAL (32.0-36.0); MONO% 10.9 % (2-13); NEUT# 1.14 thou/uL (2.00-7.15); RED BLOOD COUNT 5.01 mill/uL (4.20-5.60); RED CELL DISTRI WIDTH 21.4 % (11.5-15.5)
[2022-07-15 20:07] LABS: ALBUMIN 3.9 g/dL (3.2-5.0); ALKALINE PHOSPHATASE 91 u/l (38-126); BUN 9 mg/dL (7-17); BUN/CREATININE RATIO 11 (12-20 (CALC)); CARBON DIOXIDE 28 mmol/l (22-30); CHLORIDE 98 mmol/l (95-108); CREATININE 0.7 mg/dL (0.5-1.0); GFR FOR AFR.AMER. > 60 ML/MIN (>=60 (CALC)); GFR OTHER RACES > 60 ML/MIN (>=60 (CALC)); POTASSIUM 3.1 mmol/l (3.5-5.1); TOTAL PROTEIN 7.3 g/dL (6.3-8.2)
[2022-07-15 20:12] LABS: ANION GAP 7 (6-22 (CALC)); BILIRUBIN, TOTAL 0.6 mg/dL (0.0-1.4); SGOT/AST 67 u/l (14-36); SODIUM 130 mmol/l (137-146)
[2022-07-15 20:21] LABS: MEAN CELL VOLUME 69.3 fL CALC (80.0-100.0)
[2022-07-15 20:32] LABS: URINE BILIRUBIN - DIPSTICK NEGATIVE (NEGATIVE); URINE BLOOD DIPSTICK TRACE-INTACT (NEGATIVE); URINE COLOR YELLOW; URINE GLUCOSE - DIPSTICK NEGATIVE (NEGATIVE); URINE KETONE NEGATIVE (NEGATIVE); URINE LEUK ESTERASE NEGATIVE (NEGATIVE); URINE PH 6.5 (4.5-8.0); URINE PROTEIN - DIPSTICK TRACE mg/dL (NEG-TRACE); URINE SPECIFIC GRAVITY 1.015
[2022-07-15 20:34] LABS: URINE NITRITE - DIPSTICK NEGATIVE (Negative)
[2022-07-15] MEDS ORDERED: VIBRAMYCIN100 M2 PO (22:00)
[2022-07-15] MEDS ORDERED: ONDANSETRON4 MG PO (22:00)
[2022-07-16 07:36] VITALS: BP 99/56
== END 2022-07-16 07:54 | disposition home or self-care (01) ==
LOC: ED 13:00
PROVIDERS: Nurse Practitioner
DX: J18.9 Pneumonia, unspecified organism (principal); E87.6 Hypokalemia; D69.6 Thrombocytopenia, unspecified; I42.9 Cardiomyopathy, unspecified; J45.909 Unspecified asthma, uncomplicated; F17.200 Nicotine dependence, unspecified, uncomplicated; Z86.73 Personal history of transient ischemic attack (TIA), and cerebral infarction without residual deficits; Z20.822 Contact with and (suspected) exposure to COVID-19
CPT/HCPCS: Q9967

== ENCOUNTER 2022-07-23 04:10 | Emergency (ER) | payer OTHER ==
[~2022-07-23] VITALS: Ht 165.1 cm; Wt 54.0 kg
[~2022-07-23 04:10] MED LIST changes: +ONDANSETRON4 MG PO; +VIBRAMYCIN100 M2 PO
[2022-07-23 04:53] LABS: BASO% 0.5 % (0-3); EOS% 0.2 % (0-8); HEMATOCRIT 33.8 % (37.0-47.0); HEMOGLOBIN 9.6 g/dl (12.0-16.0); IMMATURE GRANULOCYTES 0.2 % (0.0-5.0); LYMPH% 48.1 % (15-41); MEAN CORPUSCULAR HGB 20.9 pG CALC (26.0-32.0); MEAN CORPUSCULAR HGB CONC 28.4 g/dL CAL (32.0-36.0); MONO% 8.3 % (2-13); NEUT# 2.72 thou/uL (2.00-7.15); NEUT% 42.7 % (42-76); RED BLOOD COUNT 4.6 mill/uL (4.20-5.60); RED CELL DISTRI WIDTH 24.3 % (11.5-15.5)
[2022-07-23 04:54] LABS: MEAN CELL VOLUME 73.5 fL CALC (80.0-100.0)
[2022-07-23 05:03] LABS: ALBUMIN 3.9 g/dL (3.2-5.0); ALKALINE PHOSPHATASE 83 u/l (38-126); BUN 3 mg/dL (7-17); BUN/CREATININE RATIO 5 (12-20 (CALC)); CARBON DIOXIDE 27 mmol/l (22-30); CREATININE 0.7 mg/dL (0.5-1.0); GFR FOR AFR.AMER. > 60 ML/MIN (>=60 (CALC)); GFR OTHER RACES > 60 ML/MIN (>=60 (CALC)); SGOT/AST 33 u/l (14-36); TOTAL PROTEIN 7.5 g/dL (6.3-8.2)
[2022-07-23 05:05] LABS: ANION GAP 5 (6-22 (CALC)); BILIRUBIN, TOTAL 0.3 mg/dL (0.02-1.3); CHLORIDE 110 mmol/l (95-108); POTASSIUM 3.4 mmol/l (3.5-5.1); SODIUM 139 mmol/l (137-146)
[2022-07-23] MEDS ORDERED: VENTOLIN HFA IN (06:03)
[2022-07-23] MEDS ORDERED: PREDNISONE50 MG PO (06:03)
[2022-07-23 06:25] VITALS: BP 113/75
== END 2022-07-23 06:44 | disposition home or self-care (01) ==
LOC: ED 04:10
PROVIDERS: Family Medicine
DX: J45.901 Unspecified asthma with (acute) exacerbation (principal); I42.9 Cardiomyopathy, unspecified; Z86.73 Personal history of transient ischemic attack (TIA), and cerebral infarction without residual deficits; Z20.822 Contact with and (suspected) exposure to COVID-19

== ENCOUNTER 2022-08-21 04:17 | Emergency (ER) | payer OTHER ==
[~2022-08-21] VITALS: Ht 165.1 cm; Wt 57.6 kg
[2022-08-21] VITALS (14 sets, daily range): BP systolic 85–116; BP diastolic 49–77
[~2022-08-21 04:17] MED LIST changes: +VENTOLIN HFA IN
[2022-08-21 05:03] LABS: BASO% 0.6 % (0-3); HEMATOCRIT 36.5 % (37.0-47.0); HEMOGLOBIN 10.5 g/dl (12.0-16.0); IMMATURE GRANULOCYTES 0.4 % (0.0-5.0); LYMPH% 44.9 % (15-41); MEAN CELL VOLUME 74.8 fL CALC (80.0-100.0); MEAN CORPUSCULAR HGB 21.5 pG CALC (26.0-32.0); MEAN CORPUSCULAR HGB CONC 28.8 g/dL CAL (32.0-36.0); MONO% 10.6 % (2-13); NEUT# 1.91 thou/uL (2.00-7.15); NEUT% 35.5 % (42-76); RED BLOOD COUNT 4.88 mill/uL (4.20-5.60); RED CELL DISTRI WIDTH 21.1 % (11.5-15.5)
[2022-08-21 05:16] LABS: ALBUMIN 4.3 g/dL (3.2-5.0); ALKALINE PHOSPHATASE 103 u/l (38-126); ANION GAP 10 (6-22 (CALC)); BILIRUBIN, TOTAL 0.2 mg/dL (0.02-1.3); BUN 7 mg/dL (7-17); BUN/CREATININE RATIO 10 (12-20 (CALC)); CARBON DIOXIDE 24 mmol/l (22-30); CHLORIDE 109 mmol/l (95-108); CPK 61 u/l (30-135); CREATININE 0.7 mg/dL (0.5-1.0); GFR FOR AFR.AMER. > 60 ML/MIN (>=60 (CALC)); GFR OTHER RACES > 60 ML/MIN (>=60 (CALC)); MAGNESIUM 1.9 mg/dL (1.6-2.3); POTASSIUM 3.2 mmol/l (3.5-5.1); SGOT/AST 36 u/l (14-36); SODIUM 140 mmol/l (137-146); TOTAL PROTEIN 7.8 g/dL (6.3-8.2)
[2022-08-21 05:47] LABS: TSH, 3RD GENERATION 0.91 uIU/mL (0.47 - 4.68)
[2022-08-21] MEDS ORDERED: CORTISPORIN OTI10 ML AS (06:46)
[2022-08-21] MEDS ORDERED: CITRATE OF MEGNESIA PO (06:46)
[2022-08-21] MEDS ORDERED: MIRALAX17 GM PO (06:46)
== END 2022-08-21 07:52 | disposition home or self-care (01) ==
LOC: ED 04:17
PROVIDERS: Family Medicine
DX: K59.00 Constipation, unspecified (principal); H60.92 Unspecified otitis externa, left ear; M79.671 Pain in right foot; M79.672 Pain in left foot; J45.909 Unspecified asthma, uncomplicated; I42.9 Cardiomyopathy, unspecified; Z86.73 Personal history of transient ischemic attack (TIA), and cerebral infarction without residual deficits

== ENCOUNTER 2022-09-10 09:24 | Emergency (ER) | payer OTHER ==
[2022-09-10] VITALS (19 sets, daily range): BP systolic 84–114; BP diastolic 43–62
[~2022-09-10] VITALS: Ht 165.1 cm; Wt 65.0 kg
[~2022-09-10 09:24] MED LIST changes: +CITRATE OF MEGNESIA PO; +CORTISPORIN OTI10 ML AS; +MIRALAX17 GM PO
== END 2022-09-10 16:13 | disposition home or self-care (01) ==
LOC: ED 09:24
DX: J06.9 Acute upper respiratory infection, unspecified (principal); J45.909 Unspecified asthma, uncomplicated; I42.9 Cardiomyopathy, unspecified; Z86.73 Personal history of transient ischemic attack (TIA), and cerebral infarction without residual deficits; Z20.822 Contact with and (suspected) exposure to COVID-19

== ENCOUNTER 2022-09-17 23:01 | Emergency (ER) | payer OTHER ==
[~2022-09-17] VITALS: Ht 165.1 cm; Wt 62.0 kg
[2022-09-18] VITALS (8 sets, daily range): BP systolic 116–134; BP diastolic 73–85
[2022-09-18] MEDS ORDERED: ULTRAM50 MG PO (01:18)
[2022-09-18] MEDS ORDERED: AMOXICILLIN500 MG PO (01:18)
== END 2022-09-18 01:59 | disposition home or self-care (01) ==
LOC: ED 23:01
DX: L03.115 Cellulitis of right lower limb (principal); S90.861A Insect bite (nonvenomous), right foot, initial encounter; I42.9 Cardiomyopathy, unspecified; J45.909 Unspecified asthma, uncomplicated; W57.XXXA Bitten or stung by nonvenomous insect and other nonvenomous arthropods, initial encounter; Z86.73 Personal history of transient ischemic attack (TIA), and cerebral infarction without residual deficits

== ENCOUNTER 2022-09-22 22:07 | Emergency (ER) | payer OTHER ==
[~2022-09-22] VITALS: Ht 165.1 cm; Wt 61.0 kg
[~2022-09-22 22:07] MED LIST changes: +AMOXICILLIN500 MG PO; +ULTRAM50 MG PO
[2022-09-22 22:31] VITALS: BP 117/76
[2022-09-22 23:00] VITALS: BP 114/68
[2022-09-22 23:30] VITALS: BP 117/71
[2022-09-22 23:57] LABS: BASO% 0.5 % (0-3); HEMATOCRIT 31.8 % (37.0-47.0); HEMOGLOBIN 9.1 g/dl (12.0-16.0); IMMATURE GRANULOCYTES 0.2 % (0.0-5.0); MEAN CELL VOLUME 76.6 fL CALC (80.0-100.0); MEAN CORPUSCULAR HGB 21.9 pG CALC (26.0-32.0); MEAN CORPUSCULAR HGB CONC 28.6 g/dL CAL (32.0-36.0); MONO% 7.7 % (2-13); NEUT# 7.2 thou/uL (2.00-7.15); NEUT% 63.6 % (42-76); RED BLOOD COUNT 4.15 mill/uL (4.20-5.60); RED CELL DISTRI WIDTH 20.9 % (11.5-15.5)
[2022-09-23] VITALS: BP 126/65
[2022-09-23 00:15] LABS: ALBUMIN 3.6 g/dL (3.2-5.0); ALKALINE PHOSPHATASE 91 u/l (38-126); BUN 8 mg/dL (7-17); BUN/CREATININE RATIO 10 (12-20 (CALC)); CARBON DIOXIDE 25 mmol/l (22-30); CHLORIDE 111 mmol/l (95-108); CREATININE 0.8 mg/dL (0.5-1.0); GFR FOR AFR.AMER. > 60 ML/MIN (>=60 (CALC)); GFR OTHER RACES > 60 ML/MIN (>=60 (CALC)); LIPASE 354 u/l (23-300); SGOT/AST 30 u/l (14-36); SODIUM 141 mmol/l (137-146); TOTAL PROTEIN 7.1 g/dL (6.3-8.2)
[2022-09-23 00:16] LABS: ANION GAP 9 (6-22 (CALC)); POTASSIUM 4.1 mmol/l (3.5-5.1)
[2022-09-23] MEDS ORDERED: ONDANSETRON4 MG PO (01:12)
[2022-09-23 03:10] VITALS: BP 122/71
== END 2022-09-23 03:10 | disposition home or self-care (01) ==
LOC: ED 22:07
PROVIDERS: Emergency Medicine
DX: R11.2 Nausea with vomiting, unspecified (principal); D64.9 Anemia, unspecified; J45.909 Unspecified asthma, uncomplicated; I42.9 Cardiomyopathy, unspecified; Z86.73 Personal history of transient ischemic attack (TIA), and cerebral infarction without residual deficits; Z20.822 Contact with and (suspected) exposure to COVID-19

== ENCOUNTER 2022-09-27 07:30 | Emergency (ER) | payer OTHER ==
[~2022-09-27] VITALS: Ht 165.1 cm; Wt 63.5 kg
[2022-09-27] MEDS ORDERED: PERMETHRIN5 % EX (08:22)
[2022-09-27] MEDS ORDERED: ZYRTEC10 M5 PO (08:22)
[2022-09-27] MEDS ORDERED: DOXY-CAPS100 MG PO (08:22)
[2022-09-27 08:51] VITALS: BP 110/77
== END 2022-09-27 08:52 | disposition home or self-care (01) ==
LOC: ED 07:30
DX: B86 Scabies (principal); J45.909 Unspecified asthma, uncomplicated; I42.9 Cardiomyopathy, unspecified; Z86.73 Personal history of transient ischemic attack (TIA), and cerebral infarction without residual deficits

== ENCOUNTER 2022-11-08 00:42 | Emergency (ER) | payer OTHER ==
[~2022-11-08] VITALS: Ht 165.1 cm; Wt 45.0 kg
[~2022-11-08 00:42] MED LIST changes: +DOXY-CAPS100 MG PO; +PERMETHRIN5 % EX; +ZYRTEC10 M5 PO
[2022-11-08 02:42] VITALS: BP 120/65
== END 2022-11-08 02:42 | disposition home or self-care (01) ==
LOC: ED 00:42
DX: I89.0 Lymphedema, not elsewhere classified (principal); Z32.02 Encounter for pregnancy test, result negative; I42.9 Cardiomyopathy, unspecified; J45.909 Unspecified asthma, uncomplicated; Z86.73 Personal history of transient ischemic attack (TIA), and cerebral infarction without residual deficits

== ENCOUNTER 2022-11-09 03:21 | Emergency (ER) | payer OTHER ==
[~2022-11-09] VITALS: Ht 165.1 cm; Wt 45.0 kg
[2022-11-09 03:47] VITALS: BP 121/73
== END 2022-11-09 03:51 | disposition home or self-care (01) ==
LOC: ED 03:21
DX: I89.0 Lymphedema, not elsewhere classified (principal); I42.9 Cardiomyopathy, unspecified; J45.909 Unspecified asthma, uncomplicated; F17.200 Nicotine dependence, unspecified, uncomplicated; Z86.73 Personal history of transient ischemic attack (TIA), and cerebral infarction without residual deficits

== ENCOUNTER 2022-11-28 05:39 | Emergency (ER) | payer OTHER ==
[~2022-11-28] VITALS: Ht 162.6 cm; Wt 61.8 kg
[~2022-11-28 05:39] MED LIST changes: +AMOX/K CLAV875 M1 PO; +B-12500 MC1 PO; +FERROUS SULF325 M3 PO; +PREDNISONE10 MG PO
[2022-11-28 06:22] LABS: BASO% 0.6 % (0-3); HEMATOCRIT 32.4 % (37.0-47.0); HEMOGLOBIN 9.3 g/dl (12.0-16.0); IMMATURE GRANULOCYTES 0.2 % (0.0-5.0); LYMPH% 34.8 % (15-41); MEAN CELL VOLUME 74.7 fL CALC (80.0-100.0); MEAN CORPUSCULAR HGB 21.4 pG CALC (26.0-32.0); MEAN CORPUSCULAR HGB CONC 28.7 g/dL CAL (32.0-36.0); MONO% 7.2 % (2-13); NEUT# 5.44 thou/uL (2.00-7.15); NEUT% 52.2 % (42-76); RED BLOOD COUNT 4.34 mill/uL (4.20-5.60); RED CELL DISTRI WIDTH 20.8 % (11.5-15.5)
[2022-11-28] MEDS ORDERED: BENZONATATE200 MG PO (06:53)
[2022-11-28] MEDS ORDERED: VENTOLIN HFA IN (06:53)
[2022-11-28 08:40] VITALS: BP 130/75
== END 2022-11-28 08:48 | disposition home or self-care (01) ==
LOC: ED 05:39
PROVIDERS: Family Medicine
DX: J02.9 Acute pharyngitis, unspecified (principal); D64.9 Anemia, unspecified; F17.200 Nicotine dependence, unspecified, uncomplicated; Z20.822 Contact with and (suspected) exposure to COVID-19

== ENCOUNTER 2022-11-30 | Emergency (ER) | payer OTHER ==
[~2022-11-30] VITALS: Ht 162.6 cm; Wt 63.0 kg
[~2022-11-30] MED LIST changes: +BENZONATATE200 MG PO
[2022-11-30 01:19] LABS: URINE BILIRUBIN - DIPSTICK NEGATIVE (NEGATIVE); URINE BLOOD DIPSTICK LARGE (NEGATIVE); URINE COLOR YELLOW; URINE GLUCOSE - DIPSTICK NEGATIVE (NEGATIVE); URINE KETONE NEGATIVE (NEGATIVE); URINE LEUK ESTERASE NEGATIVE (NEGATIVE); URINE PROTEIN - DIPSTICK 30 mg/dL (NEG-TRACE); URINE SPECIFIC GRAVITY >=1.030; URINE UROBILINOGEN - DIPSTICK 0.2 E.U./dL (0.2)
[2022-11-30 01:29] LABS: URINE NITRITE - DIPSTICK NEGATIVE (Negative)
[2022-11-30 01:33] LABS: URINE BACTERIA FEW hpf; URINE RBC 50-100 RBC/hpf (0-5); URINE SQUAMOUS EPITHELIAL CELL FEW EPI/hpf (0-FEW)
[2022-11-30 02:20] VITALS: BP 123/74
== END 2022-11-30 02:20 | disposition home or self-care (01) ==
LOC: ED
PROVIDERS: Emergency Medicine
DX: N93.9 Abnormal uterine and vaginal bleeding, unspecified (principal); Z32.02 Encounter for pregnancy test, result negative; F17.200 Nicotine dependence, unspecified, uncomplicated; Z59.00 Homelessness unspecified

== ENCOUNTER 2022-12-02 01:53 | Emergency (ER) | payer OTHER ==
[~2022-12-02] VITALS: Ht 162.6 cm; Wt 82.0 kg
[2022-12-02 03:00] LABS: HEMATOCRIT 27.5 % (37.0-47.0); HEMOGLOBIN 7.8 g/dl (12.0-16.0); LYMPH% 51.5 % (15-41); MEAN CELL VOLUME 76.2 fL CALC (80.0-100.0); MEAN CORPUSCULAR HGB 21.6 pG CALC (26.0-32.0); MEAN CORPUSCULAR HGB CONC 28.4 g/dL CAL (32.0-36.0); MONO% 9.7 % (2-13); NEUT# 1.65 thou/uL (2.00-7.15); NEUT% 31.8 % (42-76); RED BLOOD COUNT 3.61 mill/uL (4.20-5.60); RED CELL DISTRI WIDTH 21.1 % (11.5-15.5)
[2022-12-02 03:15] LABS: ALBUMIN 3.5 g/dL (3.2-5.0); ALKALINE PHOSPHATASE 111 u/l (38-126); ANION GAP 11 (6-22 (CALC)); BUN 6 mg/dL (7-17); BUN/CREATININE RATIO 9 (12-20 (CALC)); CARBON DIOXIDE 23 mmol/l (22-30); CHLORIDE 111 mmol/l (95-108); CREATININE 0.7 mg/dL (0.5-1.0); GFR FOR AFR.AMER. > 60 ML/MIN (>=60 (CALC)); GFR OTHER RACES > 60 ML/MIN (>=60 (CALC)); POTASSIUM 3.4 mmol/l (3.5-5.1); SGOT/AST 47 u/l (14-36); SODIUM 141 mmol/l (137-146); TOTAL PROTEIN 6.5 g/dL (6.3-8.2)
[2022-12-02] MEDS ORDERED: ZPAK PO (04:24)
[2022-12-02 07:34] VITALS: BP 116/54
== END 2022-12-02 07:35 | disposition home or self-care (01) ==
LOC: ED 01:53
PROVIDERS: Emergency Medicine
DX: J06.9 Acute upper respiratory infection, unspecified (principal); R07.89 Other chest pain; I42.4 Endocardial fibroelastosis; F17.200 Nicotine dependence, unspecified, uncomplicated; Z20.822 Contact with and (suspected) exposure to COVID-19

== ENCOUNTER 2022-12-12 07:03 | Emergency (ER) | payer OTHER ==
[~2022-12-12] VITALS: Ht 162.6 cm; Wt 64.0 kg
[2022-12-12 07:44] LABS: BASO% 0.6 % (0-3); EOS% 0.8 % (0-8); HEMATOCRIT 33.1 % (37.0-47.0); HEMOGLOBIN 9.3 g/dl (12.0-16.0); IMMATURE GRANULOCYTES 0.2 % (0.0-5.0); LYMPH% 37.6 % (15-41); MEAN CELL VOLUME 75.7 fL CALC (80.0-100.0); MEAN CORPUSCULAR HGB 21.3 pG CALC (26.0-32.0); MEAN CORPUSCULAR HGB CONC 28.1 g/dL CAL (32.0-36.0); NEUT# 4.67 thou/uL (2.00-7.15); NEUT% 54.8 % (42-76); RED BLOOD COUNT 4.37 mill/uL (4.20-5.60); RED CELL DISTRI WIDTH 21.2 % (11.5-15.5)
[2022-12-12 07:57] LABS: ALBUMIN 4.5 g/dL (3.2-5.0); ALKALINE PHOSPHATASE 95 u/l (38-126); ANION GAP 12 (6-22 (CALC)); BILIRUBIN, TOTAL 0.1 mg/dL (0.02-1.3); BUN 14 mg/dL (7-17); BUN/CREATININE RATIO 17 (12-20 (CALC)); CARBON DIOXIDE 24 mmol/l (22-30); CHLORIDE 109 mmol/l (95-108); CREATININE 0.8 mg/dL (0.5-1.0); ETHYL ALCOHOL 0 mg/dl (0-30); GFR FOR AFR.AMER. > 60 ML/MIN (>=60 (CALC)); GFR OTHER RACES > 60 ML/MIN (>=60 (CALC)); POTASSIUM 3.9 mmol/l (3.5-5.1); SGOT/AST 34 u/l (14-36); SODIUM 141 mmol/l (137-146); TOTAL PROTEIN 7.9 g/dL (6.3-8.2)
[2022-12-12] MEDS ORDERED: VENTOLIN HFA108 MCG PO (08:56)
[2022-12-12 09:06] VITALS: BP 128/79
== END 2022-12-12 09:40 | disposition home or self-care (01) ==
LOC: ED 07:03
PROVIDERS: Family Medicine
DX: R60.0 Localized edema (principal); F17.200 Nicotine dependence, unspecified, uncomplicated

== ENCOUNTER 2022-12-24 05:29 | Emergency (ER) | payer OTHER ==
[~2022-12-24] VITALS: Ht 162.6 cm; Wt 65.0 kg
[~2022-12-24 05:29] MED LIST changes: +VENTOLIN HFA108 MCG PO
[2022-12-24 06:18] LABS: BASO% 0.8 % (0-3); EOS% 5.4 % (0-8); HEMATOCRIT 32.9 % (37.0-47.0); IMMATURE GRANULOCYTES 0.2 % (0.0-5.0); LYMPH% 41.4 % (15-41); MEAN CELL VOLUME 77.2 fL CALC (80.0-100.0); MEAN CORPUSCULAR HGB 21.1 pG CALC (26.0-32.0); MEAN CORPUSCULAR HGB CONC 27.4 g/dL CAL (32.0-36.0); MONO% 10.7 % (2-13); NEUT# 2.76 thou/uL (2.00-7.15); NEUT% 41.5 % (42-76); RED BLOOD COUNT 4.26 mill/uL (4.20-5.60); RED CELL DISTRI WIDTH 20.3 % (11.5-15.5)
[2022-12-24 06:30] LABS: ALKALINE PHOSPHATASE 90 u/l (38-126); ANION GAP 14 (6-22 (CALC)); BILIRUBIN, TOTAL 0.4 mg/dL (0.02-1.3); BUN 17 mg/dL (7-17); BUN/CREATININE RATIO 18 (12-20 (CALC)); CARBON DIOXIDE 20 mmol/l (22-30); CHLORIDE 113 mmol/l (95-108); GFR FOR AFR.AMER. > 60 ML/MIN (>=60 (CALC)); GFR OTHER RACES > 60 ML/MIN (>=60 (CALC)); LIPASE 307 u/l (23-300); SGOT/AST 37 u/l (14-36); SODIUM 143 mmol/l (137-146); TOTAL PROTEIN 7.2 g/dL (6.3-8.2)
[2022-12-24 06:33] LABS: URINE BILIRUBIN - DIPSTICK NEGATIVE (NEGATIVE); URINE BLOOD DIPSTICK NEGATIVE (NEGATIVE); URINE COLOR YELLOW; URINE GLUCOSE - DIPSTICK NEGATIVE (NEGATIVE); URINE KETONE NEGATIVE (NEGATIVE); URINE LEUK ESTERASE NEGATIVE (NEGATIVE); URINE PH 5.5 (4.5-8.0); URINE PROTEIN - DIPSTICK 30 mg/dL (NEG-TRACE); URINE SPECIFIC GRAVITY >=1.030; URINE UROBILINOGEN - DIPSTICK 0.2 E.U./dL (0.2)
[2022-12-24 06:35] LABS: URINE NITRITE - DIPSTICK NEGATIVE (Negative)
[2022-12-24 06:43] LABS: URINE BACTERIA FEW hpf; URINE MUCUS FEW hpf (NONE-FEW); URINE SQUAMOUS EPITHELIAL CELL MANY EPI/hpf (0-FEW)
[2022-12-24] MEDS ORDERED: ZPAK PO (07:48)
[2022-12-24] MEDS ORDERED: AMOX/K CLAV875 M1 PO (07:48)
[2022-12-24] MEDS ORDERED: ZOFRAN4 MG/TAB PO (07:48)
[2022-12-24 08:18] VITALS: BP 116/76
== END 2022-12-24 08:31 | disposition home or self-care (01) ==
LOC: ED 05:29
PROVIDERS: Family Medicine
DX: J18.9 Pneumonia, unspecified organism (principal); I42.9 Cardiomyopathy, unspecified; Z86.73 Personal history of transient ischemic attack (TIA), and cerebral infarction without residual deficits; Z95.0 Presence of cardiac pacemaker; F17.210 Nicotine dependence, cigarettes, uncomplicated

== ENCOUNTER 2022-12-26 03:06 | Emergency (ER) | payer OTHER ==
[~2022-12-26] VITALS: Ht 162.6 cm; Wt 66.7 kg
[~2022-12-26 03:06] MED LIST changes: +ZOFRAN4 MG/TAB PO
[2022-12-26 04:25] LABS: BASO% 0.8 % (0-3); EOS% 5.1 % (0-8); HEMATOCRIT 30.4 % (37.0-47.0); HEMOGLOBIN 8.7 g/dl (12.0-16.0); IMMATURE GRANULOCYTES 0.2 % (0.0-5.0); LYMPH% 44.9 % (15-41); MEAN CELL VOLUME 75.6 fL CALC (80.0-100.0); MEAN CORPUSCULAR HGB 21.6 pG CALC (26.0-32.0); MEAN CORPUSCULAR HGB CONC 28.6 g/dL CAL (32.0-36.0); MONO% 11.5 % (2-13); NEUT# 2.43 thou/uL (2.00-7.15); NEUT% 37.5 % (42-76); RED BLOOD COUNT 4.02 mill/uL (4.20-5.60)
[2022-12-26 04:42] LABS: ALBUMIN 3.9 g/dL (3.2-5.0); ALKALINE PHOSPHATASE 112 u/l (38-126); ANION GAP 12 (6-22 (CALC)); BILIRUBIN, TOTAL 0.3 mg/dL (0.02-1.3); BUN 17 mg/dL (7-17); BUN/CREATININE RATIO 18 (12-20 (CALC)); CARBON DIOXIDE 21 mmol/l (22-30); CHLORIDE 112 mmol/l (95-108); GFR FOR AFR.AMER. > 60 ML/MIN (>=60 (CALC)); GFR OTHER RACES > 60 ML/MIN (>=60 (CALC)); MAGNESIUM 1.9 mg/dL (1.6-2.3); POTASSIUM 4.2 mmol/l (3.5-5.1); SGOT/AST 39 u/l (14-36); SODIUM 140 mmol/l (137-146); TOTAL PROTEIN 7.1 g/dL (6.3-8.2)
[2022-12-26] MEDS ORDERED: NAPROXEN375 MG PO (05:11)
[2022-12-26] MEDS ORDERED: CHROMAGEN1 CAP PO (05:11)
[2022-12-26 05:28] VITALS: BP 132/68
== END 2022-12-26 05:36 | disposition home or self-care (01) ==
LOC: ED 03:06
PROVIDERS: Family Medicine
DX: M79.672 Pain in left foot (principal); M79.671 Pain in right foot; I89.0 Lymphedema, not elsewhere classified; D64.9 Anemia, unspecified; I42.9 Cardiomyopathy, unspecified; F17.200 Nicotine dependence, unspecified, uncomplicated; Z86.73 Personal history of transient ischemic attack (TIA), and cerebral infarction without residual deficits; Z95.0 Presence of cardiac pacemaker

== ENCOUNTER 2022-12-28 23:16 | Emergency (ER) | payer OTHER ==
[~2022-12-28] VITALS: Ht 162.6 cm; Wt 68.0 kg
[~2022-12-28 23:16] MED LIST changes: +CHROMAGEN1 CAP PO; +NAPROXEN375 MG PO
[2022-12-28 23:29] VITALS: BP 121/67
[2022-12-28 23:30] VITALS: BP 130/79
[2022-12-28 23:45] VITALS: BP 107/60
[2022-12-29] VITALS (7 sets, daily range): BP systolic 97–117; BP diastolic 51–65
[2022-12-29 00:43] LABS: BASO% 0.9 % (0-3); HEMATOCRIT 27.7 % (37.0-47.0); HEMOGLOBIN 7.7 g/dl (12.0-16.0); IMMATURE GRANULOCYTES 0.2 % (0.0-5.0); LYMPH% 45.2 % (15-41); MEAN CELL VOLUME 76.1 fL CALC (80.0-100.0); MEAN CORPUSCULAR HGB 21.2 pG CALC (26.0-32.0); MEAN CORPUSCULAR HGB CONC 27.8 g/dL CAL (32.0-36.0); MONO% 10.6 % (2-13); NEUT# 2.19 thou/uL (2.00-7.15); NEUT% 38.1 % (42-76); RED BLOOD COUNT 3.64 mill/uL (4.20-5.60); RED CELL DISTRI WIDTH 20.7 % (11.5-15.5)
[2022-12-29 00:46] LABS: ALBUMIN 3.4 g/dL (3.2-5.0); ALKALINE PHOSPHATASE 117 u/l (38-126); ANION GAP 9 (6-22 (CALC)); BILIRUBIN, TOTAL 0.3 mg/dL (0.02-1.3); BUN 13 mg/dL (7-17); BUN/CREATININE RATIO 16 (12-20 (CALC)); CARBON DIOXIDE 23 mmol/l (22-30); CHLORIDE 112 mmol/l (95-108); CREATININE 0.8 mg/dL (0.5-1.0); GFR FOR AFR.AMER. > 60 ML/MIN (>=60 (CALC)); GFR OTHER RACES > 60 ML/MIN (>=60 (CALC)); POTASSIUM 3.6 mmol/l (3.5-5.1); SGOT/AST 37 u/l (14-36); SODIUM 140 mmol/l (137-146); TOTAL PROTEIN 6.6 g/dL (6.3-8.2)
[2022-12-29 01:43] LABS: URINE BILIRUBIN - DIPSTICK NEGATIVE (NEGATIVE); URINE BLOOD DIPSTICK NEGATIVE (NEGATIVE); URINE COLOR YELLOW; URINE GLUCOSE - DIPSTICK NEGATIVE (NEGATIVE); URINE KETONE NEGATIVE (NEGATIVE); URINE LEUK ESTERASE NEGATIVE (NEGATIVE); URINE PROTEIN - DIPSTICK TRACE mg/dL (NEG-TRACE); URINE SPECIFIC GRAVITY >=1.030; URINE UROBILINOGEN - DIPSTICK 0.2 E.U./dL (0.2)
[2022-12-29 01:44] LABS: URINE NITRITE - DIPSTICK NEGATIVE (Negative)
[2022-12-29] MEDS ORDERED: PREDNISONE20 MG PO (02:13)
[2022-12-29] MEDS ORDERED: PROAIR RES108 MCG/AC IN (02:13)
== END 2022-12-29 02:36 | disposition home or self-care (01) ==
LOC: ED 23:16
PROVIDERS: Emergency Medicine
DX: J45.901 Unspecified asthma with (acute) exacerbation (principal); R60.0 Localized edema; I42.8 Other cardiomyopathies; Z87.74 Personal history of (corrected) congenital malformations of heart and circulatory system; Z86.73 Personal history of transient ischemic attack (TIA), and cerebral infarction without residual deficits

== ENCOUNTER 2022-12-30 22:20 | Emergency (ER) | payer OTHER ==
[~2022-12-30] VITALS: Ht 162.6 cm; Wt 66.3 kg
[~2022-12-30 22:20] MED LIST changes: +PROAIR RES108 MCG/AC IN
[2022-12-30 22:59] LABS: BASO% 0.7 % (0-3); HEMATOCRIT 28.8 % (37.0-47.0); IMMATURE GRANULOCYTES 0.2 % (0.0-5.0); LYMPH% 41.3 % (15-41); MEAN CORPUSCULAR HGB 21.1 pG CALC (26.0-32.0); MEAN CORPUSCULAR HGB CONC 27.8 g/dL CAL (32.0-36.0); MONO% 7.8 % (2-13); NEUT# 2.74 thou/uL (2.00-7.15); RED BLOOD COUNT 3.79 mill/uL (4.20-5.60); RED CELL DISTRI WIDTH 20.5 % (11.5-15.5)
[2022-12-30 23:13] LABS: ALBUMIN 3.4 g/dL (3.2-5.0); ALKALINE PHOSPHATASE 113 u/l (38-126); ANION GAP 10 (6-22 (CALC)); BILIRUBIN, TOTAL 0.2 mg/dL (0.02-1.3); BUN 9 mg/dL (7-17); BUN/CREATININE RATIO 11 (12-20 (CALC)); CARBON DIOXIDE 23 mmol/l (22-30); CHLORIDE 112 mmol/l (95-108); CREATININE 0.8 mg/dL (0.5-1.0); GFR FOR AFR.AMER. > 60 ML/MIN (>=60 (CALC)); GFR OTHER RACES > 60 ML/MIN (>=60 (CALC)); POTASSIUM 3.4 mmol/l (3.5-5.1); SGOT/AST 43 u/l (14-36); SODIUM 142 mmol/l (137-146); TOTAL PROTEIN 6.5 g/dL (6.3-8.2)
[2022-12-31] MEDS ORDERED: LOTRISONE EX (05:12)
[2022-12-31] MEDS ORDERED: ULTRAM50 MG PO (05:12)
[2022-12-31 09:29] VITALS: BP 110/66
[2023-01-01] MEDS ORDERED: PERMETHRIN5 % EX (23:55)
[2023-01-01] MEDS ORDERED: DIPHENHYDRAM50 M2 PO (23:56)
== END 2022-12-31 09:30 | disposition home or self-care (01) ==
LOC: ED 22:20
PROVIDERS: Emergency Medicine
DX: M79.672 Pain in left foot (principal); M79.671 Pain in right foot; I42.9 Cardiomyopathy, unspecified; F17.200 Nicotine dependence, unspecified, uncomplicated; Z95.0 Presence of cardiac pacemaker; Z86.73 Personal history of transient ischemic attack (TIA), and cerebral infarction without residual deficits

== ENCOUNTER 2023-01-01 21:23 | Emergency (ER) | payer OTHER ==
[~2023-01-01] VITALS: Ht 162.6 cm; Wt 55.0 kg
[~2023-01-01 21:23] MED LIST changes: +LOTRISONE EX
[2023-01-01] MEDS ORDERED: PERMETHRIN5 % EX (23:55)
[2023-01-01] MEDS ORDERED: DIPHENHYDRAM50 M2 PO (23:56)
[2023-01-02 00:04] VITALS: BP 123/65
== END 2023-01-02 00:09 | disposition home or self-care (01) ==
LOC: ED 21:23
DX: B86 Scabies (principal); I42.9 Cardiomyopathy, unspecified; F17.200 Nicotine dependence, unspecified, uncomplicated; Z86.73 Personal history of transient ischemic attack (TIA), and cerebral infarction without residual deficits; Z95.0 Presence of cardiac pacemaker; Z20.822 Contact with and (suspected) exposure to COVID-19

== ENCOUNTER 2023-01-03 05:11 | Emergency (ER) | payer OTHER ==
[~2023-01-03 05:11] MED LIST changes: +DIPHENHYDRAM50 M2 PO
== END 2023-01-03 06:12 | disposition left against medical advice (07) | DRG 951 ==
LOC: ED 05:11 → LWOBS 06:12
DX: Z53.21 Procedure and treatment not carried out due to patient leaving prior to being seen by health care provider (principal)

== ENCOUNTER 2023-01-06 00:16 | Emergency (ER) | payer OTHER ==
[~2023-01-06] VITALS: Ht 165.1 cm; Wt 74.0 kg
[2023-01-06] MEDS ORDERED: LOTRIMIN AF JOCK1 % TOP (00:34)
[2023-01-06 00:49] VITALS: BP 105/55
== END 2023-01-06 00:49 | disposition home or self-care (01) ==
LOC: ED 00:16
DX: B35.6 Tinea cruris (principal); I42.9 Cardiomyopathy, unspecified; Z86.73 Personal history of transient ischemic attack (TIA), and cerebral infarction without residual deficits; Z95.0 Presence of cardiac pacemaker

== ENCOUNTER 2023-01-08 03:54 | Emergency (ER) | payer OTHER ==
[~2023-01-08] VITALS: Ht 165.1 cm; Wt 71.0 kg
[~2023-01-08 03:54] MED LIST changes: +LOTRIMIN AF JOCK1 % TOP
[2023-01-08 04:29] VITALS: BP 137/88
[2023-01-13] MEDS ORDERED: INHALER (01:52)
[2023-01-13] MEDS ORDERED: ZOFRAN4 MG/TAB PO (02:23)
== END 2023-01-08 04:35 | disposition home or self-care (01) ==
LOC: ED 03:54
DX: L98.1 Factitial dermatitis (principal); I42.9 Cardiomyopathy, unspecified; Z86.73 Personal history of transient ischemic attack (TIA), and cerebral infarction without residual deficits; Z95.0 Presence of cardiac pacemaker

== ENCOUNTER 2023-01-20 00:32 | Emergency (ER) | payer OTHER ==
[~2023-01-20] VITALS: Ht 165.1 cm; Wt 59.0 kg
[~2023-01-20 00:32] MED LIST changes: +BENADRY2 EX; +INHALER; +NAPROXEN500 MG PO
[2023-01-20 00:42] VITALS: BP 124/78
[2023-01-20] MEDS ORDERED: POLYTRIM OU (00:47)
[2023-01-20 01:00] VITALS: BP 112/68
[2023-01-20 01:17] VITALS: BP 112/68
== END 2023-01-20 01:20 | disposition home or self-care (01) ==
LOC: ED 00:32
DX: H10.13 Acute atopic conjunctivitis, bilateral (principal); I42.9 Cardiomyopathy, unspecified; Z86.73 Personal history of transient ischemic attack (TIA), and cerebral infarction without residual deficits; Z95.0 Presence of cardiac pacemaker; Z59.00 Homelessness unspecified; F17.200 Nicotine dependence, unspecified, uncomplicated

== ENCOUNTER 2023-02-13 10:48 | Emergency (ER) | payer OTHER ==
[~2023-02-13 10:48] MED LIST changes: +POLYTRIM OU
== END 2023-02-13 11:30 | disposition left against medical advice (07) ==
LOC: ED 10:48 → LWOBS 11:10 → ED 11:10
DX: Z53.21 Procedure and treatment not carried out due to patient leaving prior to being seen by health care provider (principal)

== ENCOUNTER 2023-02-25 04:44 | Emergency (ER) | payer OTHER ==
[~2023-02-25] VITALS: Ht 165.1 cm; Wt 58.0 kg
[2023-02-25] MEDS ORDERED: ALBUTEROL SUL0.083 % IN (05:10)
[2023-02-25 05:37] LABS: BASO% 0.6 % (0-3); EOS% 4.4 % (0-8); HEMATOCRIT 33.7 % (37.0-47.0); HEMOGLOBIN 9.6 g/dl (12.0-16.0); IMMATURE GRANULOCYTES 0.1 % (0.0-5.0); LYMPH% 30.7 % (15-41); MEAN CELL VOLUME 73.1 fL CALC (80.0-100.0); MEAN CORPUSCULAR HGB 20.8 pG CALC (26.0-32.0); MEAN CORPUSCULAR HGB CONC 28.5 g/dL CAL (32.0-36.0); MONO% 6.2 % (2-13); NEUT# 6.38 thou/uL (2.00-7.15); RED BLOOD COUNT 4.61 mill/uL (4.20-5.60); RED CELL DISTRI WIDTH 18.7 % (11.5-15.5)
[2023-02-25 05:44] LABS: URINE BLOOD DIPSTICK Negative (NEGATIVE); URINE GLUCOSE - DIPSTICK Negative (NEGATIVE); URINE KETONE 15 mg/dL (NEGATIVE); URINE LEUK ESTERASE Negative (NEGATIVE); URINE NITRITE - DIPSTICK Negative (Negative); URINE PROTEIN - DIPSTICK 100 mg/dL (NEG-TRACE); URINE SPECIFIC GRAVITY >=1.030; URINE UROBILINOGEN - DIPSTICK 0.2 E.U./dL (0.2)
[2023-02-25 05:45] LABS: URINE COLOR Yellow
[2023-02-25 05:49] LABS: ALBUMIN 4.6 g/dL (3.2-5.0); ALKALINE PHOSPHATASE 120 u/l (38-126); ANION GAP 13 (6-22 (CALC)); BUN 21 mg/dL (7-17); BUN/CREATININE RATIO 21 (12-20 (CALC)); CARBON DIOXIDE 22 mmol/l (22-30); CHLORIDE 106 mmol/l (95-108); GFR FOR AFR.AMER. > 60 ML/MIN (>=60 (CALC)); GFR OTHER RACES > 60 ML/MIN (>=60 (CALC)); POTASSIUM 3.9 mmol/l (3.5-5.1); SGOT/AST 45 u/l (14-36); SODIUM 137 mmol/l (137-146); TOTAL PROTEIN 8.4 g/dL (6.3-8.2)
[2023-02-25 05:50] LABS: BILIRUBIN, TOTAL 0.5 mg/dL (0.02-1.3)
[2023-02-25 05:51] LABS: URINE BACTERIA FEW hpf; URINE EPITHELIAL CELLS MODERATE EPI/hpf (0-FEW); URINE MUCUS FEW hpf (NONE-FEW)
[2023-02-25] MEDS ORDERED: OMNI-PAC300 MG PO (07:36)
[2023-02-25] MEDS ORDERED: ZPAK PO (07:36)
[2023-02-25 07:53] VITALS: BP 110/71
[2023-02-25] MEDS ORDERED: VENTOLIN HFA108 MCG PO (07:58)
== END 2023-02-25 07:54 | disposition home or self-care (01) ==
LOC: ED 04:44
PROVIDERS: Emergency Medicine
DX: J18.9 Pneumonia, unspecified organism (principal); N39.0 Urinary tract infection, site not specified; I42.9 Cardiomyopathy, unspecified; F17.200 Nicotine dependence, unspecified, uncomplicated; Z86.73 Personal history of transient ischemic attack (TIA), and cerebral infarction without residual deficits; Z95.0 Presence of cardiac pacemaker; Z59.00 Homelessness unspecified; Z20.822 Contact with and (suspected) exposure to COVID-19

== ENCOUNTER 2023-03-09 22:33 | Emergency (ER) | payer OTHER ==
[~2023-03-09] VITALS: Ht 165.1 cm; Wt 64.0 kg
[~2023-03-09 22:33] MED LIST changes: +ALBUTEROL SUL0.083 % IN; +OMNI-PAC300 MG PO
[2023-03-09 22:37] VITALS: BP 135/83
[2023-03-09 23:49] LABS: EOS% 8.4 % (0-8); HEMATOCRIT 30.6 % (37.0-47.0); HEMOGLOBIN 8.7 g/dl (12.0-16.0); IMMATURE GRANULOCYTES 0.1 % (0.0-5.0); LYMPH% 39.6 % (15-41); MEAN CELL VOLUME 74.3 fL CALC (80.0-100.0); MEAN CORPUSCULAR HGB 21.1 pG CALC (26.0-32.0); MEAN CORPUSCULAR HGB CONC 28.4 g/dL CAL (32.0-36.0); MONO% 6.7 % (2-13); NEUT# 3.42 thou/uL (2.00-7.15); NEUT% 44.2 % (42-76); RED BLOOD COUNT 4.12 mill/uL (4.20-5.60); RED CELL DISTRI WIDTH 20.9 % (11.5-15.5)
[2023-03-10 00:21] LABS: ALBUMIN 3.8 g/dL (3.2-5.0); ALKALINE PHOSPHATASE 107 u/l (38-126); ANION GAP 8 (6-22 (CALC)); BILIRUBIN, TOTAL 0.3 mg/dL (0.02-1.3); BUN 12 mg/dL (7-17); BUN/CREATININE RATIO 16 (12-20 (CALC)); CARBON DIOXIDE 24 mmol/l (22-30); CHLORIDE 110 mmol/l (95-108); CREATININE 0.8 mg/dL (0.5-1.0); GFR FOR AFR.AMER. > 60 ML/MIN (>=60 (CALC)); GFR OTHER RACES > 60 ML/MIN (>=60 (CALC)); POTASSIUM 3.5 mmol/l (3.5-5.1); SGOT/AST 49 u/l (14-36); SODIUM 138 mmol/l (137-146); TOTAL PROTEIN 7.1 g/dL (6.3-8.2)
[2023-03-10] MEDS ORDERED: CEPHALEXIN500 MG PO (01:12)
[2023-03-10 01:33] LABS: URINE BILIRUBIN - DIPSTICK Negative (NEGATIVE); URINE BLOOD DIPSTICK Negative (NEGATIVE); URINE COLOR Yellow; URINE GLUCOSE - DIPSTICK Negative (NEGATIVE); URINE KETONE Negative (NEGATIVE); URINE LEUK ESTERASE Negative (NEGATIVE); URINE NITRITE - DIPSTICK Negative (Negative); URINE PROTEIN - DIPSTICK Negative (NEG-TRACE); URINE UROBILINOGEN - DIPSTICK 0.2 E.U./dL (0.2)
[2023-03-10 01:39] VITALS: BP 135/83
== END 2023-03-10 01:40 | disposition home or self-care (01) ==
LOC: ED 22:33
PROVIDERS: Emergency Medicine
DX: J06.9 Acute upper respiratory infection, unspecified (principal); I42.9 Cardiomyopathy, unspecified; Z86.73 Personal history of transient ischemic attack (TIA), and cerebral infarction without residual deficits; Z59.00 Homelessness unspecified; F17.200 Nicotine dependence, unspecified, uncomplicated; Z20.822 Contact with and (suspected) exposure to COVID-19

== ENCOUNTER 2023-03-15 02:09 | Emergency (ER) | payer OTHER ==
[~2023-03-15] VITALS: Ht 165.1 cm; Wt 58.0 kg
[~2023-03-15 02:09] MED LIST changes: +CEPHALEXIN500 MG PO
[2023-03-15 03:16] VITALS: BP 103/62
[2023-03-15 03:30] VITALS: BP 115/75
[2023-03-15 03:44] LABS: URINE BILIRUBIN - DIPSTICK Negative (NEGATIVE); URINE BLOOD DIPSTICK Large (NEGATIVE); URINE GLUCOSE - DIPSTICK Negative (NEGATIVE); URINE KETONE Negative (NEGATIVE); URINE LEUK ESTERASE Negative (NEGATIVE); URINE NITRITE - DIPSTICK Negative (Negative); URINE PROTEIN - DIPSTICK Negative (NEG-TRACE); URINE SPECIFIC GRAVITY 1.025; URINE UROBILINOGEN - DIPSTICK 0.2 E.U./dL (0.2)
[2023-03-15 03:45] VITALS: BP 95/58
[2023-03-15 03:46] LABS: URINE COLOR Yellow
[2023-03-15 03:52] LABS: URINE BACTERIA FEW hpf; URINE EPITHELIAL CELLS MANY EPI/hpf (0-FEW); URINE MUCUS FEW hpf (NONE-FEW); URINE RBC 25-50 RBC/hpf (0-5)
[2023-03-15 04:00] VITALS: BP 102/68
[2023-03-15 04:15] VITALS: BP 119/83
[2023-03-15 04:23] LABS: BASO% 1.2 % (0-3); HEMATOCRIT 29.6 % (37.0-47.0); HEMOGLOBIN 8.3 g/dl (12.0-16.0); IMMATURE GRANULOCYTES 0.3 % (0.0-5.0); LYMPH% 41.3 % (15-41); MEAN CELL VOLUME 74.6 fL CALC (80.0-100.0); MEAN CORPUSCULAR HGB 20.9 pG CALC (26.0-32.0); MONO% 8.4 % (2-13); NEUT# 2.81 thou/uL (2.00-7.15); NEUT% 40.8 % (42-76); RED BLOOD COUNT 3.97 mill/uL (4.20-5.60); RED CELL DISTRI WIDTH 20.7 % (11.5-15.5)
[2023-03-15 04:54] LABS: ALBUMIN 3.5 g/dL (3.2-5.0); ALKALINE PHOSPHATASE 119 u/l (38-126); ANION GAP 7 (6-22 (CALC)); BILIRUBIN, TOTAL 0.4 mg/dL (0.02-1.3); BUN 12 mg/dL (7-17); BUN/CREATININE RATIO 16 (12-20 (CALC)); CARBON DIOXIDE 25 mmol/l (22-30); CHLORIDE 111 mmol/l (95-108); CREATININE 0.7 mg/dL (0.5-1.0); GFR FOR AFR.AMER. > 60 ML/MIN (>=60 (CALC)); GFR OTHER RACES > 60 ML/MIN (>=60 (CALC)); POTASSIUM 3.8 mmol/l (3.5-5.1); SGOT/AST 47 u/l (14-36); SODIUM 138 mmol/l (137-146); TOTAL PROTEIN 6.8 g/dL (6.3-8.2)
[2023-03-15 06:47] VITALS: BP 119/83
== END 2023-03-15 07:15 | disposition home or self-care (01) ==
LOC: ED 02:09
PROVIDERS: Emergency Medicine
DX: J06.9 Acute upper respiratory infection, unspecified (principal); D64.9 Anemia, unspecified; I42.9 Cardiomyopathy, unspecified; F17.200 Nicotine dependence, unspecified, uncomplicated; T50.906A Underdosing of unspecified drugs, medicaments and biological substances, initial encounter; Z91.120 Patient's intentional underdosing of medication regimen due to financial hardship; Z95.810 Presence of automatic (implantable) cardiac defibrillator; Z88.0 Allergy status to penicillin; Z86.73 Personal history of transient ischemic attack (TIA), and cerebral infarction without residual deficits; Z59.00 Homelessness unspecified; Z20.822 Contact with and (suspected) exposure to COVID-19

== ENCOUNTER 2023-08-10 03:03 | Observation (INO) | payer BC, OTHER ==
[~2023-08-10] VITALS: Ht 165.1 cm; Wt 60.0 kg
[2023-08-10] VITALS (14 sets, daily range): BP systolic 94–128; BP diastolic 50–97
--- NOTE | 2023-08-10 03:03 | NUR ---
PATIENT TO ROOM 13 VIA EMS.
--- NOTE | 2023-08-10 04:30 | NUR ---
MULTIPLE ATTEMPTS MADE TO ESTABLISH IV ACCESS. ATTEMPTS UNSSUCESFUL.
[2023-08-10 05:10] LABS: EOS% 7.4 % (0-8); HEMATOCRIT 31.9 % (37.0-47.0); HEMOGLOBIN 9.2 g/dl (12.0-16.0); IMMATURE GRANULOCYTES 0.5 % (0.0-5.0); MEAN CELL VOLUME 77.4 fL CALC (80.0-100.0); MEAN CORPUSCULAR HGB 22.3 pG CALC (26.0-32.0); MEAN CORPUSCULAR HGB CONC 28.8 g/dL CAL (32.0-36.0); MONO% 7.7 % (2-13); NEUT# 4.01 thou/uL (2.00-7.15); NEUT% 46.4 % (42-76); RED BLOOD COUNT 4.12 mill/uL (4.20-5.60)
[2023-08-10 05:25] LABS: ALBUMIN 3.9 g/dL (3.2-5.0); ALKALINE PHOSPHATASE 101 u/l (38-126); ANION GAP 8 (6-22 (CALC)); BUN 12 mg/dL (7-17); BUN/CREATININE RATIO 13 (12-20 (CALC)); CARBON DIOXIDE 27 mmol/l (22-30); CHLORIDE 111 mmol/l (95-108); CREATININE 0.9 mg/dL (0.5-1.0); GFR FOR AFR.AMER. > 60 ML/MIN (>=60 (CALC)); GFR OTHER RACES > 60 ML/MIN (>=60 (CALC)); POTASSIUM 3.7 mmol/l (3.5-5.1); SGOT/AST 38 u/l (14-36); SODIUM 141 mmol/l (137-146)
[2023-08-10 05:27] LABS: D-DIMER 0.79 mg/L (0.19-0.60)
[2023-08-10 05:30] LABS: INTERNATIONAL NORMALIZED RATIO 1.1 RATIO (0.7-1.3); PROTHROMBIN TIME 10.7 SECONDS (9.0-12.5)
--- NOTE | 2023-08-10 05:30 | NUR ---
PATIENT RESTING IN BED, NO APPARENT DISTRESS NOTED. CALL LIGHT SHANA ALLISON.-
[2023-08-10 05:35] LABS: BILIRUBIN, TOTAL 0.2 mg/dL (0.02-1.3)
--- NOTE | 2023-08-10 06:00 | NUR ---
PATIENT RESTING IN BED, NO APPARENT DISTRESS NOTED. CALL LIGHT WITHIN REACH.
[2023-08-10] MEDS ORDERED: AZITHROMYCIN 500 MG in SODIUM CHLORIDE 0.9% 250 ML IV ONE (06:10)
[2023-08-10] MEDS ORDERED: MAGNESIUM HYDROXIDE 30 ML UDC PO PRN (06:15)
[2023-08-10] MEDS ORDERED: ACETAMINOPHEN 325 MG/TAB PO PRN (06:15)
[2023-08-10] MEDS ORDERED: SODIUM CHLORIDE 0.9% 1,000 ML IV PRN (06:15)
--- NOTE | 2023-08-10 06:45 | NUR ---
ATTEMPTED TO CALL REPORT TO ICU, NO ANSWER.
--- NOTE | 2023-08-10 07:55 | NUR ---
PT SLEEPING, RESP EVEN/UNLABORED, NAD NOTED, CALL LIGHT IN REACH, REPORT RECEIVED, PT WAITING TO GO UP STAIRS TO ICU 2 OVERFLOW.
[2023-08-10] MEDS ORDERED: IPRATROPIUM-Albuterol 0.5MG-2.5MG/3 ML NEB PRN (08:15)
--- NOTE | 2023-08-10 08:39 | NUR ---
ATTEMPTED TO CALL REPORT TO ICU 2 REPORT REFUSED, PER NURSE DR. SPANGLER WILL COME TO ER TO EXAMINE PT FOR POSSIBLE D/C HOME FROM THE ER. MAJOR MICHELLE [employer] TECHNOLOGIST NOTIFIED.
--- NOTE | 2023-08-10 08:48 | NUR ---
IN ROOM TO MEDICATE PT PER EMAR, NAD NOTED, VSS, A&O X 3, CALL LIGHT IN REACH.
[2023-08-10] MEDS ORDERED: FERROUS SULFATE 325 MG/TAB PO SCH (09:00)
--- NOTE | 2023-08-10 09:00 | NUR ---
0600 MEDS NOT GIVEN WAITING ON LAB TO OBTAIN BLOOD CULTURES.
--- NOTE | 2023-08-10 09:27 | NUR ---
IN ROOM TO FLUSH I/V S/P ANTIBIOTIC, PT VOICED NO NEEDS AT THIS TIME, VSS, NAD NOTED, HAVE CALLED FOR A BREAKFAST TRAY.
--- NOTE | 2023-08-10 09:34 | NUR ---
PT UP TO BR, AMBULATED WITH STEADY GAIT.
--- NOTE | 2023-08-10 09:40 | NUR ---
DR. SPANGLER AT BEDSIDE FOR EXAM.
--- NOTE | 2023-08-10 09:54 | NUR ---
CASE MANAGEMENT IN ROOM.
[2023-08-10] MEDS ORDERED: VENTOLIN HFA108 MCG PO (10:07)
[2023-08-10] MEDS ORDERED: OMNICEF300 MG PO (10:08)
[2023-08-10] MEDS ORDERED: ZITHROMAX250 MG PO (10:09)
[2023-08-10] MEDS ORDERED: predniSONE 20 MG/TAB PO SCH (10:30)
[2023-08-10] MEDS ORDERED: IPRATROPIUM-Albuterol 0.5MG-2.5MG/3 ML NEB SCH (11:00)
--- NOTE | 2023-08-10 11:04 | NUR ---
Reassessment of patient completed. No distress noted. VSS, PT C/O N/V X 1, CALL PLACED TO DR. PATTON FOR TX ORDERS.
[2023-08-10] MEDS ORDERED: ONDANSETRON HCl 4 MG/2 ML SDV IV PRN (11:05)
--- NOTE | 2023-08-10 11:44 | NUR ---
Reassessment of patient completed. No distress noted. VSS, PT MEDICATED PER EMAR FOR C/O N/V, RT IN ROOM FOR NEB TX, CALL LIGHT IN REACH. PT GIVEN D/C MEDICATION SUPPLIED BY [facility] AND EDUCATED ON DIRECTIONS.
--- NOTE | 2023-08-10 11:58 | NUR ---
PT C/O ABD PAIN 02/03, VSS, ADVISED DR. PATTON, ADVISED HE WOULD COME TO ER TO EVALUATE PT PRIOR TO D/C.
--- NOTE | 2023-08-10 12:16 | NUR ---
PROVIDER AT BEDSIDE FOR EXAM, V/O GIVEN TO GIVE PT LUNCH TRAY, THEN MAY BE D/C.
--- NOTE | 2023-08-10 12:40 | NUR ---
IN ROOM TO GIVE PT LUNCH TRAY, VOICED NO COMPLAINTS, NAD NOTED, PT DRESSED AND PACKING UP BELONGINGS, CALL LIGHT IN REACH.
--- NOTE | 2023-08-10 13:13 | NUR ---
D/C instructions given with verbalization of understanding. Pt. discharged home in stable condition. PT AMBULATED FROM ED WITH STEADY GAIT, NAD NOTED, ABLE TO HOLD DOWN LUNCH W/O ANY C/O PAIN OR N/V, ALL BELONGINGS SENT WITH PT AT D/C.
[2023-08-10] MEDS ORDERED: ENOXAPARIN SODIUM 40 MG/0.4 ML SYR SC SCH (21:00)
[2023-08-11] MEDS ORDERED: AZITHROMYCIN 500 MG in SODIUM CHLORIDE 0.9% 250 ML IV SCH (10:00)
== END 2023-08-10 13:13 | disposition home or self-care (01) | DRG 194 ==
LOC: ED 03:03 → ED-I 05:50 → ED 06:13 → ICU 06:14
PROVIDERS: Emergency Medicine; ADMIT Student in an Organized Health Care Education/Training Program; ATTEND Student in an Organized Health Care Education/Training Program
DX: J18.9 Pneumonia, unspecified organism (principal); I42.0 Dilated cardiomyopathy; D50.9 Iron deficiency anemia, unspecified; J45.20 Mild intermittent asthma, uncomplicated; F17.200 Nicotine dependence, unspecified, uncomplicated; Z59.00 Homelessness unspecified; Z91.199 Patient's noncompliance with other medical treatment and regimen due to unspecified reason; Z86.73 Personal history of transient ischemic attack (TIA), and cerebral infarction without residual deficits; Z95.0 Presence of cardiac pacemaker; Z72.0 Tobacco use; Z95.1 Presence of aortocoronary bypass graft; Z20.822 Contact with and (suspected) exposure to COVID-19

== ENCOUNTER 2023-08-15 23:07 | Emergency (ER) | payer BC, OTHER ==
[~2023-08-15] VITALS: Ht 165.1 cm; Wt 70.0 kg
[~2023-08-15 23:07] MED LIST changes: +OMNICEF300 MG PO; +ZITHROMAX250 MG PO
[2023-08-15] MEDS ORDERED: IPRATROPIUM-Albuterol 0.5MG-2.5MG/3 ML IN STA (23:26)
[2023-08-15 23:30] VITALS: BP 110/65
[2023-08-15] MEDS ORDERED: DOXYCYCLINE HYCLATE 100 MG/CAP PO ONE (23:30)
[2023-08-15] MEDS ORDERED: methylPREDNISolone SODIUM SUCC 125 MG/2 ML SDV IM ONE (23:30)
[2023-08-15 23:45] VITALS: BP 102/57
[2023-08-15 23:53] LABS: EOS% 6.2 % (0-8); HEMATOCRIT 32.5 % (37.0-47.0); IMMATURE GRANULOCYTES 0.1 % (0.0-5.0); LYMPH% 29.6 % (15-41); MEAN CELL VOLUME 79.3 fL CALC (80.0-100.0); MEAN CORPUSCULAR HGB CONC 27.7 g/dL CAL (32.0-36.0); MONO% 7.4 % (2-13); NEUT# 5.71 thou/uL (2.00-7.15); NEUT% 55.7 % (42-76); RED BLOOD COUNT 4.1 mill/uL (4.20-5.60); RED CELL DISTRI WIDTH 20.3 % (11.5-15.5)
[2023-08-16] VITALS: BP 84/37
[2023-08-16 00:11] LABS: HCG SERUM/URINE (NEG/POS) NEGATIVE (NEGATIVE)
[2023-08-16] MEDS ORDERED: VIBRAMYCIN100 M2 PO (00:48)
[2023-08-16 01:00] VITALS: BP 100/53
== END 2023-08-16 01:00 | disposition home or self-care (01) | DRG 194 ==
LOC: ED 23:07
PROVIDERS: Family Medicine
DX: J18.9 Pneumonia, unspecified organism (principal); J45.901 Unspecified asthma with (acute) exacerbation; Z72.0 Tobacco use; Z86.73 Personal history of transient ischemic attack (TIA), and cerebral infarction without residual deficits; Z95.1 Presence of aortocoronary bypass graft; Z95.0 Presence of cardiac pacemaker; Z20.822 Contact with and (suspected) exposure to COVID-19

== ENCOUNTER 2023-12-14 03:56 | Emergency (ER) | payer OTHER ==
[~2023-12-14] VITALS: Ht 165.1 cm; Wt 77.0 kg
[2023-12-14] VITALS (7 sets, daily range): BP systolic 95–120; BP diastolic 51–76
[~2023-12-14 03:56] MED LIST changes: +DOXYCYCLINE100 MG PO; +HYDROCHLOROT25 MG PO; +MAXITROL 0.1 %1 SUS OS; +PROAIR DIG108 MCG/AC PO; +ZITHROMAX TRI-500 MG PO
[2023-12-14 05:35] LABS: BASO% 0.8 % (0-3); EOS% 5.4 % (0-8); HEMATOCRIT 32.1 % (37.0-47.0); HEMOGLOBIN 9.1 g/dl (12.0-16.0); IMMATURE GRANULOCYTES 0.2 % (0.0-5.0); LYMPH% 38.5 % (15-41); MEAN CORPUSCULAR HGB 21.3 pG CALC (26.0-32.0); MEAN CORPUSCULAR HGB CONC 28.3 g/dL CAL (32.0-36.0); MONO% 11.6 % (2-13); NEUT# 2.6 thou/uL (2.00-7.15); NEUT% 43.5 % (42-76); RED BLOOD COUNT 4.28 mill/uL (4.20-5.60); RED CELL DISTRI WIDTH 18.4 % (11.5-15.5)
[2023-12-14 05:43] LABS: CREATININE 0.8 mg/dL (0.5-1.0); POTASSIUM 3.3 mmol/l (3.5-5.1)
[2023-12-14] MEDS ORDERED: PREDNISONE20 MG PO (06:18)
== END 2023-12-14 06:40 | disposition home or self-care (01) ==
LOC: ED 03:56
PROVIDERS: Family Medicine
DX: R06.02 Shortness of breath (principal); D64.9 Anemia, unspecified; J45.909 Unspecified asthma, uncomplicated; I89.0 Lymphedema, not elsewhere classified; I42.9 Cardiomyopathy, unspecified; Z72.0 Tobacco use; Z87.74 Personal history of (corrected) congenital malformations of heart and circulatory system; Z95.0 Presence of cardiac pacemaker; Z95.1 Presence of aortocoronary bypass graft; Z86.73 Personal history of transient ischemic attack (TIA), and cerebral infarction without residual deficits

== ENCOUNTER 2024-01-04 01:55 | Emergency (ER) | payer OTHER ==
[~2024-01-04] VITALS: Ht 165.1 cm; Wt 89.0 kg
[2024-01-04 02:00] VITALS: BP 122/75
[2024-01-04] MEDS ORDERED: KETOROLAC TROMETHAMINE 30 MG/ML SDV IM ONE (02:15)
[2024-01-04] MEDS ORDERED: BUTALBITAL-APAP-CAFFEINE 50-325-40 TAB PO ONE (02:15)
[2024-01-04 02:30] VITALS: BP 110/62
[2024-01-04 02:54] LABS: URINE BLOOD DIPSTICK Negative (NEGATIVE); URINE GLUCOSE - DIPSTICK Negative (NEGATIVE); URINE KETONE Trace mg/dL (NEGATIVE); URINE LEUK ESTERASE Trace (NEGATIVE); URINE NITRITE - DIPSTICK Negative (Negative); URINE PROTEIN - DIPSTICK 30 mg/dL (NEG-TRACE); URINE SPECIFIC GRAVITY >=1.030
[2024-01-04 02:55] LABS: URINE COLOR Yellow
[2024-01-04 03:01] LABS: URINE BACTERIA MODERATE hpf; URINE EPITHELIAL CELLS MODERATE EPI/hpf (0-FEW)
[2024-01-04 03:26] VITALS: BP 110/62
== END 2024-01-04 03:26 | disposition home or self-care (01) ==
LOC: ED 01:55
PROVIDERS: Family Medicine
DX: R51.9 Headache, unspecified (principal); M54.6 Pain in thoracic spine; J45.909 Unspecified asthma, uncomplicated; I42.9 Cardiomyopathy, unspecified; I89.0 Lymphedema, not elsewhere classified; F17.210 Nicotine dependence, cigarettes, uncomplicated; Z95.1 Presence of aortocoronary bypass graft; Z86.73 Personal history of transient ischemic attack (TIA), and cerebral infarction without residual deficits; Z95.0 Presence of cardiac pacemaker; R82.71 Bacteriuria

== ENCOUNTER 2024-01-06 02:19 | Emergency (ER) | payer OTHER ==
[~2024-01-06] VITALS: Ht 165.1 cm; Wt 81.0 kg
[2024-01-06] MEDS ORDERED: KETOROLAC TROMETHAMINE 30 MG/ML SDV IM ONE (02:50)
[2024-01-06] MEDS ORDERED: ACETAMINOPHEN 500 MG TAB PO ONE (02:50)
[2024-01-06] MEDS ORDERED: ASPIRIN 81 MG/TAB PO ONE (02:50)
[2024-01-06 03:24] LABS: BASO% 0.7 % (0-3); EOS% 8.5 % (0-8); HEMATOCRIT 35.8 % (37.0-47.0); HEMOGLOBIN 9.5 g/dl (12.0-16.0); LYMPH% 43.5 % (15-41); MEAN CELL VOLUME 78.7 fL CALC (80.0-100.0); MEAN CORPUSCULAR HGB 20.9 pG CALC (26.0-32.0); MEAN CORPUSCULAR HGB CONC 26.5 g/dL CAL (32.0-36.0); MONO% 6.9 % (2-13); NEUT# 1.77 thou/uL (2.00-7.15); NEUT% 40.4 % (42-76); RED BLOOD COUNT 4.55 mill/uL (4.20-5.60); RED CELL DISTRI WIDTH 18.3 % (11.5-15.5)
[2024-01-06 03:38] LABS: ALKALINE PHOSPHATASE 70 u/l (38-126); BILIRUBIN, TOTAL 0.3 mg/dL (0.02-1.3); BUN 9 mg/dL (7-17); BUN/CREATININE RATIO 12 (12-20 (CALC)); CARBON DIOXIDE 26 mmol/l (22-30); CHLORIDE 112 mmol/l (95-108); CREATININE 0.8 mg/dL (0.5-1.0); ESTIMATED GFR 105 ML/MIN (>=90 (CALC)); SGOT/AST 42 u/l (14-36); SODIUM 138 mmol/l (137-146); TOTAL PROTEIN 7.5 g/dL (6.3-8.2)
[2024-01-06 03:40] LABS: ANION GAP 4 (6-22 (CALC)); POTASSIUM 4.3 mmol/l (3.5-5.1)
[2024-01-06] MEDS ORDERED: VENTOLIN HFA108 MCG (05:20)
[2024-01-06 07:20] VITALS: BP 113/75
== END 2024-01-06 07:51 | disposition home or self-care (01) ==
LOC: ED 02:19
PROVIDERS: Family Medicine
DX: R07.89 Other chest pain (principal); I89.0 Lymphedema, not elsewhere classified; J45.909 Unspecified asthma, uncomplicated; Z86.73 Personal history of transient ischemic attack (TIA), and cerebral infarction without residual deficits; Z95.1 Presence of aortocoronary bypass graft; Z87.891 Personal history of nicotine dependence

== ENCOUNTER 2024-01-09 04:45 | Emergency (ER) | payer OTHER ==
[~2024-01-09] VITALS: Ht 165.1 cm; Wt 80.0 kg
[~2024-01-09 04:45] MED LIST changes: +VENTOLIN HFA108 MCG
[2024-01-09 04:53] VITALS: BP 142/102
[2024-01-09 05:00] VITALS: BP 135/95
[2024-01-09] MEDS ORDERED: ERYTHROMYCIN OPTHALMIC 5 MG/GM TUBE OD ONE (05:05)
[2024-01-09] MEDS ORDERED: LIDOcaine HCl 1% (Local Anesth.) 20 ML VIAL IM STA (05:05)
[2024-01-09] MEDS ORDERED: FLUORESCEIN SODIUM 1 MG EA OU ONE (05:05)
[2024-01-09] MEDS ORDERED: FLUORESCEIN SODIUM 1 MG EA OD ONE (05:05)
[2024-01-09] MEDS ORDERED: cefTRIAXone SODIUM 1 GM/VIAL SDV IM ONE (05:05)
[2024-01-09] MEDS ORDERED: cloNIDine HCL 0.1 MG/TAB PO ONE (05:05)
[2024-01-09] MEDS ORDERED: POLYMYXIN B SUL1 SOL OU (05:09)
[2024-01-09 05:23] VITALS: BP 135/95
== END 2024-01-09 05:29 | disposition home or self-care (01) ==
LOC: ED 04:45
DX: H10.9 Unspecified conjunctivitis (principal); I10 Essential (primary) hypertension; Z59.00 Homelessness unspecified

== ENCOUNTER 2024-02-03 01:13 | Emergency (ER) | payer OTHER ==
[~2024-02-03] VITALS: Ht 165.1 cm; Wt 68.0 kg
[~2024-02-03 01:13] MED LIST changes: +POLYMYXIN B SUL1 SOL OU
[2024-02-03] MEDS ORDERED: NYSTATIN 1500 MU/BTL TOP ONE (01:25)
[2024-02-03] MEDS ORDERED: NYAMYC100000 UNI TOP (01:29)
[2024-02-03 02:10] VITALS: BP 133/90
== END 2024-02-03 02:10 | disposition home or self-care (01) ==
LOC: ED 01:13
DX: B35.3 Tinea pedis (principal); T69.022A Immersion foot, left foot, initial encounter; J45.909 Unspecified asthma, uncomplicated; I42.4 Endocardial fibroelastosis; Z95.0 Presence of cardiac pacemaker; Z86.73 Personal history of transient ischemic attack (TIA), and cerebral infarction without residual deficits

== ENCOUNTER 2024-02-23 22:24 | Emergency (ER) | payer OTHER ==
[~2024-02-23] VITALS: Ht 165.1 cm; Wt 68.0 kg
[~2024-02-23 22:24] MED LIST changes: +NYAMYC100000 UNI TOP
[2024-02-23] MEDS ORDERED: SODIUM CHLORIDE 0.9% 1,000 ML IV STA (22:28)
[2024-02-23] MEDS ORDERED: KETOROLAC TROMETHAMINE 30 MG/ML SDV IV ONE (22:30)
[2024-02-23] MEDS ORDERED: ACETAMINOPHEN 500 MG TAB PO ONE (22:30)
[2024-02-23] MEDS ORDERED: PROMETHAZINE HCL 25 MG/ML AMP IV ONE (22:30)
[2024-02-23 23:07] LABS: URINE BILIRUBIN - DIPSTICK Negative (NEGATIVE); URINE BLOOD DIPSTICK Negative (NEGATIVE); URINE GLUCOSE - DIPSTICK Negative (NEGATIVE); URINE KETONE Negative (NEGATIVE); URINE LEUK ESTERASE Negative (NEGATIVE); URINE NITRITE - DIPSTICK Negative (Negative); URINE PH 5.5 (4.5-8.0); URINE PROTEIN - DIPSTICK Negative (NEG-TRACE); URINE UROBILINOGEN - DIPSTICK 0.2 E.U./dL (0.2)
[2024-02-23 23:07] LABS: BASO% 1.2 % (0-3); EOS% 6.9 % (0-8); HEMATOCRIT 31.9 % (37.0-47.0); HEMOGLOBIN 9.1 g/dl (12.0-16.0); IMMATURE GRANULOCYTES 0.1 % (0.0-5.0); LYMPH% 38.1 % (15-41); MEAN CORPUSCULAR HGB CONC 28.5 g/dL CAL (32.0-36.0); MONO% 9.3 % (2-13); NEUT# 2.98 thou/uL (2.00-7.15); NEUT% 44.4 % (42-76); RED BLOOD COUNT 4.33 mill/uL (4.20-5.60); RED CELL DISTRI WIDTH 19.4 % (11.5-15.5)
[2024-02-23 23:08] LABS: URINE COLOR Yellow
[2024-02-23 23:30] LABS: MEAN CELL VOLUME 73.7 fL CALC (80.0-100.0)
[2024-02-23 23:31] VITALS: BP 114/48
[2024-02-23 23:38] LABS: ALBUMIN 4.1 g/dL (3.2-5.0); BILIRUBIN, TOTAL 0.2 mg/dL (0.02-1.3); CREATININE 0.9 mg/dL (0.5-1.0); POTASSIUM 4.1 mmol/l (3.5-5.1); TOTAL PROTEIN 7.5 g/dL (6.3-8.2)
[2024-02-24] MEDS ORDERED: Polyethylene Glycol 3350 17 GM/PKT PO ONE (00:45)
[2024-02-24] MEDS ORDERED: MAGNESIUM CITRATE 296 ML/BTL PO ONE (00:45)
[2024-02-24 00:56] VITALS: BP 116/60
== END 2024-02-24 01:22 | disposition home or self-care (01) ==
LOC: ED 22:24
PROVIDERS: Family Medicine
DX: K59.00 Constipation, unspecified (principal); I42.9 Cardiomyopathy, unspecified; J45.909 Unspecified asthma, uncomplicated; Z95.0 Presence of cardiac pacemaker

== ENCOUNTER 2024-02-29 06:18 | Emergency (ER) | payer OTHER ==
[~2024-02-29] VITALS: Ht 165.1 cm; Wt 72.0 kg
[2024-02-29] MEDS ORDERED: LICE TRTMNT1 % EX (07:54)
[2024-02-29 08:05] VITALS: BP 120/71
== END 2024-02-29 08:15 | disposition home or self-care (01) ==
LOC: ED 06:18
DX: J02.9 Acute pharyngitis, unspecified (principal); B85.0 Pediculosis due to Pediculus humanus capitis; J45.909 Unspecified asthma, uncomplicated; I42.4 Endocardial fibroelastosis; Z95.0 Presence of cardiac pacemaker

== ENCOUNTER 2024-03-06 01:44 | Emergency (ER) | payer OTHER ==
[~2024-03-06] VITALS: Ht 165.1 cm; Wt 68.0 kg
[2024-03-06] VITALS (9 sets, daily range): BP systolic 94–125; BP diastolic 49–107
[~2024-03-06 01:44] MED LIST changes: +LICE TRTMNT1 % EX
[2024-03-06] MEDS ORDERED: IPRATROPIUM-Albuterol 0.5MG-2.5MG/3 ML NEB ONE (02:25)
[2024-03-06] MEDS ORDERED: guaiFENesin-CODEINE 200-20 MG/10 ML UDC PO ONE (02:25)
[2024-03-06] MEDS ORDERED: ACETAMINOPHEN 500 MG TAB PO ONE (02:25)
[2024-03-06] MEDS ORDERED: DICLOFENAC SODIUM 75 MG/TAB PO ONE (02:25)
[2024-03-06 02:43] LABS: BASO% 1.1 % (0-3); EOS% 6.2 % (0-8); HEMATOCRIT 30.6 % (37.0-47.0); HEMOGLOBIN 8.8 g/dl (12.0-16.0); IMMATURE GRANULOCYTES 0.4 % (0.0-5.0); LYMPH% 35.3 % (15-41); MEAN CELL VOLUME 72.5 fL CALC (80.0-100.0); MEAN CORPUSCULAR HGB 20.9 pG CALC (26.0-32.0); MEAN CORPUSCULAR HGB CONC 28.8 g/dL CAL (32.0-36.0); MONO% 9.8 % (2-13); NEUT# 3.32 thou/uL (2.00-7.15); NEUT% 47.2 % (42-76); RED BLOOD COUNT 4.22 mill/uL (4.20-5.60); RED CELL DISTRI WIDTH 20.4 % (11.5-15.5)
[2024-03-06] MEDS ORDERED: PERCOGESI1 PO (04:43)
== END 2024-03-06 05:50 | disposition home or self-care (01) | DRG 832 ==
LOC: ED 01:44
PROVIDERS: Family Medicine
DX: O99.519 Diseases of the respiratory system complicating pregnancy, unspecified trimester (principal); J45.901 Unspecified asthma with (acute) exacerbation; J06.9 Acute upper respiratory infection, unspecified; I42.9 Cardiomyopathy, unspecified; Z86.73 Personal history of transient ischemic attack (TIA), and cerebral infarction without residual deficits; Z95.0 Presence of cardiac pacemaker; Z20.822 Contact with and (suspected) exposure to COVID-19; Z3A.00 Weeks of gestation of pregnancy not specified

== ENCOUNTER 2024-03-08 01:13 | Emergency (ER) | payer OTHER ==
[~2024-03-08] VITALS: Ht 165.1 cm; Wt 76.0 kg
[~2024-03-08 01:13] MED LIST changes: +PERCOGESI1 PO
[2024-03-08] MEDS ORDERED: ACETAMINOPHEN 500 MG TAB PO ONE (01:25)
[2024-03-08] MEDS ORDERED: MAGNESIUM OXIDE 400 MG/TAB PO ONE ×2 (01:30→01:55)
[2024-03-08 01:48] LABS: URINE BILIRUBIN - DIPSTICK Negative (NEGATIVE); URINE BLOOD DIPSTICK Negative (NEGATIVE); URINE GLUCOSE - DIPSTICK Negative (NEGATIVE); URINE KETONE Trace mg/dL (NEGATIVE); URINE LEUK ESTERASE Negative (NEGATIVE); URINE NITRITE - DIPSTICK Negative (Negative); URINE PROTEIN - DIPSTICK Negative (NEG-TRACE); URINE SPECIFIC GRAVITY 1.025; URINE UROBILINOGEN - DIPSTICK 0.2 E.U./dL (0.2)
[2024-03-08 01:48] LABS: BASO% 1.4 % (0-3); EOS% 0.3 % (0-8); HEMATOCRIT 30.3 % (37.0-47.0); HEMOGLOBIN 8.5 g/dl (12.0-16.0); IMMATURE GRANULOCYTES 0.2 % (0.0-5.0); LYMPH% 40.4 % (15-41); MEAN CELL VOLUME 74.1 fL CALC (80.0-100.0); MEAN CORPUSCULAR HGB 20.8 pG CALC (26.0-32.0); MEAN CORPUSCULAR HGB CONC 28.1 g/dL CAL (32.0-36.0); NEUT# 3.14 thou/uL (2.00-7.15); NEUT% 47.7 % (42-76); RED BLOOD COUNT 4.09 mill/uL (4.20-5.60); RED CELL DISTRI WIDTH 20.1 % (11.5-15.5)
[2024-03-08 01:58] LABS: URINE COLOR Yellow
[2024-03-08 02:05] LABS: ALBUMIN 3.8 g/dL (3.2-5.0); BILIRUBIN, TOTAL 0.2 mg/dL (0.02-1.3); CREATININE 0.8 mg/dL (0.5-1.0); MAGNESIUM 1.8 mg/dL (1.6-2.3); POTASSIUM 3.9 mmol/l (3.5-5.1)
[2024-03-08 02:30] VITALS: BP 114/77
[2024-03-08 02:38] LABS: TSH, 3RD GENERATION 0.48 uIU/mL (0.47 - 4.68)
[2024-03-08 03:00] VITALS: BP 104/61
[2024-03-08 03:30] VITALS: BP 111/67
[2024-03-08 05:01] VITALS: BP 91/57
== END 2024-03-08 05:00 | disposition home or self-care (01) | DRG 832 ==
LOC: ED 01:13
PROVIDERS: Internal Medicine
DX: O26.891 Other specified pregnancy related conditions, first trimester (principal); R07.81 Pleurodynia; R74.8 Abnormal levels of other serum enzymes; O99.011 Anemia complicating pregnancy, first trimester; D64.9 Anemia, unspecified; O99.411 Diseases of the circulatory system complicating pregnancy, first trimester; I42.9 Cardiomyopathy, unspecified; Z95.0 Presence of cardiac pacemaker; Z86.73 Personal history of transient ischemic attack (TIA), and cerebral infarction without residual deficits; Z3A.01 Less than 8 weeks gestation of pregnancy

== ENCOUNTER 2024-03-14 03:33 | Emergency (ER) | payer OTHER ==
[~2024-03-14] VITALS: Ht 165.1 cm; Wt 73.0 kg
[2024-03-14] MEDS ORDERED: ACETAMINOPHEN 500 MG TAB PO ONE (03:45)
[2024-03-14] MEDS ORDERED: DiphenhydrAMINE HCL 25 MG CPLT PO ONE (03:45)
[2024-03-14] MEDS ORDERED: LOTRISONE EX (05:00)
[2024-03-14 05:10] VITALS: BP 122/72
== END 2024-03-14 05:10 | disposition home or self-care (01) | DRG 832 ==
LOC: ED 03:33
DX: O99.519 Diseases of the respiratory system complicating pregnancy, unspecified trimester (principal); J06.9 Acute upper respiratory infection, unspecified; J45.909 Unspecified asthma, uncomplicated; O98.819 Other maternal infectious and parasitic diseases complicating pregnancy, unspecified trimester; B35.6 Tinea cruris; O99.419 Diseases of the circulatory system complicating pregnancy, unspecified trimester; I42.9 Cardiomyopathy, unspecified; Z95.0 Presence of cardiac pacemaker; Z3A.00 Weeks of gestation of pregnancy not specified; Z20.822 Contact with and (suspected) exposure to COVID-19

== ENCOUNTER 2024-03-26 03:48 | Emergency (ER) | payer OTHER ==
[~2024-03-26] VITALS: Ht 165.1 cm; Wt 74.3 kg
[2024-03-26] MEDS ORDERED: ACETAMINOPHEN 325 MG/TAB PO ONE (04:45)
[2024-03-26 05:04] LABS: URINE BILIRUBIN - DIPSTICK Negative (NEGATIVE); URINE BLOOD DIPSTICK Negative (NEGATIVE); URINE GLUCOSE - DIPSTICK Negative (NEGATIVE); URINE KETONE Negative (NEGATIVE); URINE LEUK ESTERASE Negative (NEGATIVE); URINE NITRITE - DIPSTICK Negative (Negative); URINE PH 5.5 (4.5-8.0); URINE PROTEIN - DIPSTICK Negative (NEG-TRACE); URINE SPECIFIC GRAVITY 1.015; URINE UROBILINOGEN - DIPSTICK 0.2 E.U./dL (0.2)
[2024-03-26 05:09] LABS: URINE COLOR Yellow
[2024-03-26] MEDS ORDERED: PAIN RELIEF325 MG PO (05:59)
[2024-03-26 06:16] VITALS: BP 115/61
== END 2024-03-26 06:16 | disposition home or self-care (01) ==
LOC: ED 03:48
PROVIDERS: Family Medicine
DX: O26.891 Other specified pregnancy related conditions, first trimester (principal); R07.9 Chest pain, unspecified; M54.9 Dorsalgia, unspecified; O99.511 Diseases of the respiratory system complicating pregnancy, first trimester; J45.909 Unspecified asthma, uncomplicated; O99.411 Diseases of the circulatory system complicating pregnancy, first trimester; I42.9 Cardiomyopathy, unspecified; I89.0 Lymphedema, not elsewhere classified; Z86.73 Personal history of transient ischemic attack (TIA), and cerebral infarction without residual deficits; Z95.0 Presence of cardiac pacemaker; Z3A.08 8 weeks gestation of pregnancy

== ENCOUNTER 2024-05-25 16:43 | Emergency (ER) | payer OTHER ==
[~2024-05-25] VITALS: Ht 165.1 cm; Wt 81.6 kg
[~2024-05-25 16:43] MED LIST changes: +PAIN RELIEF325 MG PO
[2024-05-25 16:52] VITALS: BP 144/103
[2024-05-25 17:26] LABS: BASO% 0.6 % (0-3); EOS% 10.4 % (0-8); HEMATOCRIT 35.6 % (37.0-47.0); HEMOGLOBIN 11.1 g/dl (12.0-16.0); IMMATURE GRANULOCYTES 0.3 % (0.0-5.0); LYMPH% 25.7 % (15-41); MEAN CORPUSCULAR HGB 25.9 pG CALC (26.0-32.0); MEAN CORPUSCULAR HGB CONC 31.2 g/dL CAL (32.0-36.0); MONO% 10.6 % (2-13); NEUT# 3.77 thou/uL (2.00-7.15); NEUT% 52.4 % (42-76); RED BLOOD COUNT 4.29 mill/uL (4.20-5.60); RED CELL DISTRI WIDTH 20.9 % (11.5-15.5)
[2024-05-25 17:37] LABS: ALBUMIN 3.7 g/dL (3.2-5.0); CREATININE 0.6 mg/dL (0.5-1.0); POTASSIUM 3.8 mmol/l (3.5-5.1); TOTAL PROTEIN 6.9 g/dL (6.3-8.2)
[2024-05-25 17:40] LABS: BILIRUBIN, TOTAL 0.3 mg/dL (0.02-1.3)
[2024-05-25 19:10] VITALS: BP 144/103
== END 2024-05-25 19:10 | disposition home or self-care (01) | DRG 832 ==
LOC: ED 16:43
PROVIDERS: Family Medicine
DX: O26.892 Other specified pregnancy related conditions, second trimester (principal); N89.8 Other specified noninflammatory disorders of vagina; O99.412 Diseases of the circulatory system complicating pregnancy, second trimester; I42.9 Cardiomyopathy, unspecified; Z3A.15 15 weeks gestation of pregnancy; Z95.0 Presence of cardiac pacemaker

== ENCOUNTER 2024-07-08 00:10 | Emergency (ER) | payer OTHER ==
[2024-07-08] VITALS (9 sets, daily range): BP systolic 85–112; BP diastolic 41–59
[~2024-07-08] VITALS: Ht 165.1 cm; Wt 80.0 kg
[2024-07-08] MEDS ORDERED: PRENATA3 PO (02:19)
[2024-07-08 04:38] LABS: URINE BILIRUBIN - DIPSTICK Negative (NEGATIVE); URINE BLOOD DIPSTICK Negative (NEGATIVE); URINE GLUCOSE - DIPSTICK Negative (NEGATIVE); URINE KETONE Negative (NEGATIVE); URINE LEUK ESTERASE Negative (NEGATIVE); URINE NITRITE - DIPSTICK Negative (Negative); URINE PH 6.5 (4.5-8.0); URINE PROTEIN - DIPSTICK Trace mg/dL (NEG-TRACE); URINE SPECIFIC GRAVITY 1.025; URINE UROBILINOGEN - DIPSTICK 0.2 E.U./dL (0.2)
[2024-07-08 04:39] LABS: URINE COLOR Yellow
== END 2024-07-08 05:14 | disposition home or self-care (01) ==
LOC: ED 00:10
PROVIDERS: Family Medicine
DX: O9A.212 Injury, poisoning and certain other consequences of external causes complicating pregnancy, second trimester (principal); S29.012A Strain of muscle and tendon of back wall of thorax, initial encounter; O99.412 Diseases of the circulatory system complicating pregnancy, second trimester; I42.9 Cardiomyopathy, unspecified; X58.XXXA Exposure to other specified factors, initial encounter; Z3A.21 21 weeks gestation of pregnancy; Z95.0 Presence of cardiac pacemaker